=== PATIENT | male | born 1965 | race Caucasian/White ===

== ENCOUNTER 2016-11-09 14:03 | Observation (INO) | payer OTHER ==
[2016-11-09] VITALS (8 sets, daily range): BP systolic 124–161; BP diastolic 79–93; PULSE 65–80; RESP 16–18; TEMP 97.7–98.6; O2SAT 95–99
[~2016-11-09] VITALS: Ht 180.3 cm; Wt 94.6 kg
[~2016-11-09 14:03] MED LIST: ATOR40TA49 PO; CARV3.125 PO; ECOT81TA2 PO; ISOS30 PO; LEVEMIR SC; LISI5 PO; NOVOLOGSS SQ; PRAS10 PO
[2016-11-09 14:14] LABS: MEAN CORPUSCULAR HGB CONC 36.6 % (32.0-36.0)
[2016-11-09] MEDS ORDERED: ASPIRIN 81 MG CHEW TAB PO ONE (14:15)
[2016-11-09] MEDS ORDERED: SODIUM CHLORIDE 0.9% FLUSH 5 ML FLUSH IVF PRN (14:15)
[2016-11-09] MEDS ORDERED: ASPI81CH CHEW (14:20)
[2016-11-09] MEDS ORDERED: LISI-519 PO (14:20)
[2016-11-09] MEDS ORDERED: NITR0.4S SL (14:22)
[2016-11-09] MEDS ORDERED: INSU1INJ5 SQ (14:22)
[2016-11-09] MEDS ORDERED: LYRI100C PO (14:22)
[2016-11-09] MEDS ORDERED: NOVOINJ3 SQ (14:22)
[2016-11-09] MEDS ORDERED: PRAS10TA PO (14:25)
[2016-11-09] MEDS ORDERED: repatha SQ (14:25)
[2016-11-09 14:46] LABS: AUTOMATED NEUTROPHIL # 5.5 TH/MM3 (1.8-7.7); BASOPHIL # 0.1 TH/MM3 (0-0.2); BASOPHIL % 0.8 % (0.0-2.0); EOSINOPHIL # 0.2 TH/MM3 (0-0.4); HEMATOCRIT 43.6 % (39.0-51.0); LYMPH % 21.8 % (9.0-44.0); LYMPHOCYTE # 1.8 TH/MM3 (1.0-4.8); MEAN CELL VOLUME 87.6 FL (80.0-100.0); NEUT % 68.4 % (16.0-70.0); PLATELET COUNT 116 TH/MM3 (150-450); RED BLOOD COUNT 4.98 MIL/MM3 (4.50-5.90); RED CELL DISTRIBUTION WIDTH 14.3 % (11.6-17.2); WHITE BLOOD COUNT 8.1 TH/MM3 (4.0-11.0)
[2016-11-09 14:51] LABS: HEMO FLAGS AUTO DIFF
[2016-11-09 14:57] LABS: APTT (PATIENT) 32.4 SEC (24.3-30.1); PROTHROMBIN TIME - PATIENT 10.6 SEC (9.8-11.6)
--- NOTE | 2016-11-09 15:12 | RADRPT ---
EXAM DATE/TIME: 11/09/2016 14:20 [place] COMPARISON: CHEST SINGLE AP, November 04, 2015, 20:37. INDICATIONS : Chest pressure. MEDICAL HISTORY : [employer]ow[employer]. SURGICAL HISTORY : coronary artery stents x2 ENCOUNTER: Initial ACUITY: 1 day PAIN SCORE: 6/10 LOCATION: Left chest shoulder and neck FINDINGS: The cardiac silhouette is enlarged in transverse diameter. The lungs are free of acute parenchymal op acity. No effusions are identified. Osseous structures are intact. CONCLUSION: Cardiomegaly. No acute cardiopulmonary disease. Maximino Pandya MD on November 09, 2016 at 15:10 Board Certified Radiologist. This report was verified electronically.
[2016-11-09 15:16] LABS: ANION GAP 10 MEQ/L (5-15); BICARBONATE 26.1 MEQ/L (21.0-32.0); BLOOD UREA NITROGEN 13 MG/DL (7-18); CHLORIDE 97 MEQ/L (98-107); CREATINE KINASE 128 U/L (39-308); GLOMERULAR FILTRATION RATE 65 ML/MIN (>89); SODIUM (NA) 133 MEQ/L (136-145)
[2016-11-09 15:18] LABS: POTASSIUM 4.4 MEQ/L (3.5-5.1)
[2016-11-09] MEDS ORDERED: EVOL1.7I SQ (15:28)
--- NOTE | 2016-11-09 15:28 | PD ---
HPI Chief Complaint: Chest Pain Time Seen by Provider: 14:13 Travel History International Travel<30 days: No Contact w/Intl Traveler<30days: No Traveled to known affect area: No History of Present Illness HPI 51-year-old male came to the emergency room sent from his doctor's office with history of on and off chest pain for couple weeks. He had his lipid profile done which had significantly abnormal levels. He brought those results with him. Also his sugar and hemoglobin A1c are running very high. Currently patient has a chest pain off 5 out of 10. It's on the left side of his chest and it's a pressure sensation. No radiation of the pain. Patient has history of stents put in in the past. Vital signs were stable in triage. [facility] Past Medical History Narrative Medical List of his past medical, surgical, social and family history as reviewed from the nursing note. Asthma: No Autoimmune Disease: No Blood Disorders: Yes (THROMBOCYTOPENIA ) Anxiety: Yes Depression: Yes Heart Rhythm Problems: No Cancer: No Cardiac Catheterization: Yes (03/2014) Cardiovascular Problems: Yes High Cholesterol: Yes Chemotherapy: No Chest Pain: Yes Congestive Heart Failure: No COPD: No Diabetes: Yes Diminished Hearing: No Endocrine: Yes Gastrointestinal Disorders: Yes Gout: Yes Genitourinary: No Hypertension: No Immune Disorder: No Implanted Vascular Access Dvce: No Musculoskeletal: No Neurologic: No Psychiatric: Yes Reproductive: Yes (ERECTILE DYSFUNCTION) Respiratory: No Immunizations Current: Yes Radiation Therapy: No Sickle Cell Disease: No Sleep Apnea: No Thyroid Disease: No Triglycerides - High: Yes Past Surgical History Abdominal Surgery: No AICD: No Arteriovenous Shunt: No Body Medical Devices: CARDIAC STENT Cardiac Surgery: Yes Ear Surgery: No Endocrine Surgery: Yes (TONSILECTOMY) Eye Surgery: No Genitourinary Surgery: No Gynecologic Surgery: No Insulin Pump: No Joint Replacement: No Neurologic Surgery: No Oral Surgery: No Pacemaker: No Thoracic Surgery: No Tonsillectomy: Yes (1998) Other Surgery: Yes (TONSILS) Social History Alcohol Use: No Tobacco Use: No Substance Use: No Allergies-Medications (Allergen,Severity, Reaction): Coded Allergies: No Known Allergies (Unverified , 11/09/16) Comments No known drug allergies. Reported Meds & Prescriptions Reported Meds & Active Scripts Active Reported Repatha PF Inj (Evolocumab PF Inj) 140 Mg/Ml Syr 140 Mg SQ BIWEEKLY Effient (Prasugrel) 10 Mg Tab 10 Mg PO DAILY Levemir Flextouch Pen Inj (Insulin Detemir) 300 unit/3 ML Pen 120 Units SQ BID Novolog Flexpen Inj (Insulin Aspart) 300 Unit/3 Ml Pen 1 Units SQ Nitrostat SL (Nitroglycerin) 0.4 Mg Subl 0.4 Mg SL DIRECTED PRN 1 tablet under the tongue as needed for chest pain. Repeat every 5 minutes for a total of 3 DOSES or call 911 if NO relief. Lyrica (Pregabalin) 100 Mg Cap 100 Mg PO TID Lisinopril 5 Mg Tab 5 Mg PO DAILY Aspirin 81 Mg Chew 81 Mg CHEW DAILY Narrative Medication List of his home medications reviewed from the nursing note. Review of Systems Except as stated in HPI: all other systems reviewed are Neg Physical Exam Narrative GENERAL: Awake, alert, no obvious distress SKIN: Warm and dry. HEAD: Atraumatic. Normocephalic. EYES: Pupils equal and round. No scleral icterus. No injection or drainage. ENT: No nasal bleeding or discharge. Mucous membranes pink and moist. NECK: Trachea midline. No JVD. CARDIOVASCULAR: Regular rate and rhythm. No murmur appreciated. RESPIRATORY: No accessory muscle use. Clear to auscultation. Breath sounds equal bilaterally. GASTROINTESTINAL: Abdomen soft, non-tender, nondistended. Hepatic and splenic margins not palpable. MUSCULOSKELETAL: No obvious deformities. No clubbing. No cyanosis. No edema. NEUROLOGICAL: Awake and alert. No obvious cranial nerve deficits. Motor grossly within normal limits. Normal speech. PSYCHIATRIC: Appropriate mood and affect; insight and judgment normal. Data Data Last Documented VS Orders Electrocardiogram (11/09/16 14:13) Basic Metabolic Panel (Bmp) (11/09/16 14:13) Ckmb (Isoenzyme) Profile (11/09/16 14:13) Complete Blood Count With Diff (11/09/16 14:13) Magnesium (Mg) (11/09/16 14:13) Prothrombin Time / Inr (Pt) (11/09/16 14:13) Act Partial Throm Time (Ptt) (11/09/16 14:13) Troponin I (11/09/16 14:13) Chest, Single Ap (11/09/16 14:13) Ecg Monitoring (11/09/16 14:13) Bilateral Bp Monitoring (11/09/16 14:13) Iv Access Insert/Monitor (11/09/16 14:13) Oximetry (11/09/16 14:13) Oxygen Administration (11/09/16 14:13) Aspirin Chew (Aspirin Chew) (11/09/16 14:15) Sodium Chloride 0.9% Flush (Ns Flush) (11/09/16 14:15) CKMB (11/09/16 14:25) CKMB% (11/09/16 14:25) Insulin Human Regular Inj (Novolin R Inj (11/09/16 15:30) Sodium Chlorid 0.9% 500 Ml Inj (Ns 500 M (11/09/16 15:30) Admit Order (Ed Use Only) (11/09/16 16:08) Labs MDM Medical Decision Making Medical Screen Exam Complete: Yes Emergency Medical Condition: Yes Medical Record Reviewed: Yes Interpretation(s) Twelve-lead EKG was reviewed by me. Normal sinus rhythm, normal axis, nonspecific ST-T wave changes. Heart rate of 84 bpm. Differential Diagnosis ACS, unstable angina, non-STEMI Narrative Course 3:53 PM patient's blood sugar level was 407. I've ordered 10 units of regular insulin subcutaneous. Troponin was negative. Chest x-rays within normal limits. Awaiting for the hospitalist to call back for admission. Procedures EKG Prior to Arrival: No Diagnosis Primary Impression: Chest pain Qualified Code: R07.9 - Chest pain, unspecified type Additional Impression: hyperglycemia Admitting Information Admitting Physician Requests: Observation Winston Rodney MD Nov 09, 2016 15:28 Red Cell Distribution Width 14.3 % Platelet Count 116 TH/MM3 Mean Platelet Volume 8.2 FL Neutrophils (%) (Auto) 68.4 % Lymphocytes (%) (Auto) 21.8 % Monocytes (%) (Auto) 6.0 % Eosinophils (%) (Auto) 3.0 % Basophils (%) (Auto) 0.8 % Neutrophils # (Auto) 5.5 TH/MM3 Lymphocytes # (Auto) 1.8 TH/MM3 Monocytes # (Auto) 0.5 TH/MM3 Eosinophils # (Auto) 0.2 TH/MM3 Basophils # (Auto) 0.1 TH/MM3 CBC Comment AUTO DIFF Differential Comment AUTO DIFF CONFIRMED Prothrombin Time 10.6 SEC Prothromb Time International 1.0 RATIO Ratio Activated Partial 32.4 SEC Thromboplast Time Sodium Level 133 MEQ/L Potassium Level 4.4 MEQ/L Chloride Level 97 MEQ/L Carbon Dioxide Level 26.1 MEQ/L Anion Gap 10 MEQ/L Blood Urea Nitrogen 13 MG/DL Creatinine 1.18 MG/DL Estimat Glomerular Filtration 65 ML/MIN Rate Random Glucose 407 MG/DL Calcium Level 8.9 MG/DL Magnesium Level 2.0 MG/DL Total Creatine Kinase 128 U/L Creatine Kinase MB 3.5 NG/ML Troponin I LESS THAN 0.02 NG/ML MDM Medical Decision Making Medical Screen Exam Complete: Yes Emergency Medical Condition: Yes Medical Record Reviewed: Yes Interpretation(s) Twelve-lead EKG was reviewed by me. Normal sinus rhythm, normal axis, nonspecific ST-T wave changes. Heart rate of 84 bpm. Differential Diagnosis ACS, unstable angina, non-STEMI Narrative Course 3:53 PM patient's blood sugar level was 407. I've ordered 10 units of regular insulin subcutaneous. Troponin was negative. Chest x-rays within normal limits. Awaiting for the hospitalist to call back for admission. Procedures EKG Prior to Arrival: No Diagnosis Primary Impression: Chest pain Qualified Code: R07.9 - Chest pain, unspecified type Additional Impression: hyperglycemia Winston Rodney MD Nov 09, 2016 15:28
[2016-11-09] MEDS ORDERED: SODIUM CHLORID 0.9% 500 ML INJ 500 ML IV ONE (15:30)
[2016-11-09] MEDS ORDERED: INSULIN HUMAN REGULAR 1,000 UNITS/10 ML VIAL SQ ONE (15:30)
[2016-11-09 15:45] LABS: CKMB 3.5 NG/ML (0.5-3.6)
[2016-11-09 15:47] LABS: SCAN/DIFF AUTO DIFF CONFIRMED
[2016-11-09] MEDS ORDERED: SODIUM CHLORIDE 0.9% FLUSH 5 ML FLUSH FLUSH PRN (16:15)
[2016-11-09] MEDS ORDERED: NITROGLYCERIN 0.4 MG SL 25 TABS/BTL SL PRN (16:15)
[2016-11-09] MEDS ORDERED: MAGNESIUM HYDROXIDE SUSP 30 ML CUP PO PRN (16:15)
[2016-11-09] MEDS ORDERED: ONDANSETRON HCL 4 MG/2 ML VIAL IVP PRN (16:15)
[2016-11-09] MEDS ORDERED: BISACODYL 10 MG SUPP PR PRN (16:15)
[2016-11-09] MEDS ORDERED: SENNOSIDES 8.6 MG TAB PO PRN (16:15)
[2016-11-09] MEDS ORDERED: NALOXONE HCL 0.4 MG/ML AMP IV PRN (16:15)
[2016-11-09] MEDS ORDERED: GLUCAGON 1 MG/ML VIAL OTHER PRN (16:30)
[2016-11-09] MEDS ORDERED: DEXTROSE 50% IN WATER 50 ML VIAL(D50) IV PUSH PRN (16:30)
--- NOTE | 2016-11-09 18:08 | HHI.HP ---
HPI Service [facility] Primary Care Physician Calderon Aguirre MD Admission Diagnosis chest pain, rule out ACS, hyperglycemia Diagnoses: Chief Complaint: chest pain Travel History International Travel<30 Days: No Contact w/Intl Traveler <30 Da: No Traveled to Known Affected Are: No History of Present Illness This a pleasant 51-year-old male with significant past medical history of coronary artery disease and previous stent per Dr. taylor June 2015, PAD, type 1 diabetes with hyperosmolar syndrome, hypertriglyceridemia, hypertension, peripheral neuropathy. Patient presented to the emergency room with complaint of intermittent chest pain for the last couple weeks as well as abnormal lab work. Hewent to see his primary care physician had laboratory workup done and was told to come to the emergency room. Triglycerides were noted elevated at 1475. Hemoglobin A1c was reported as 11.4. Patient endorses that he was not able to tolerate lipid-lowering agent secondary to myalgias. He was recently prescribed Repatha but it has not arrived yet. Additionally he endorsed to his PCP that he's noted chest pressure, cramping and tightness over left chest wall. Sometimes he has stiffness of the left arm and neck associated with some nausea and night sweats. These episodes last approximately 1 hour. Denies any shortness of breath with CP episodes however he's noted some dyspnea with going up the stairs. He last saw Dr. Taylor July 2016 for a follow-up. He has been compliant with medications other than his statins. Patient was evaluated in the emergency room, first set of troponin was negative. He was noted with uncontrolled blood glucose, 407. States he is a "brittle diabetic" and is on very large doses of Levemir. Chest x-ray completed shows cardiomegaly, no acute cardiopulmonary disease. At this time he has some minor left-sided chest tightness, no shortness of breath. He is somewhat anxious and didn't really want to come to the hospital however he felt that the symptoms were ongoing and he was concerned that this could be another cardiac event. Pt. is admitted for further evaluation and treatment. Review of Systems Constitutional: COMPLAINS OF: Night Sweats, DENIES: Diaphoretic episodes, Fatigue, Fever, Weight gain, Weight loss, Chills, Dizziness, Change in appetite Endocrine: DENIES: Heat/cold intolerance, Polydipsia, Polyuria, Polyphagia Eyes: DENIES: Blurred vision, Diplopia, Eye inflammation, Eye pain, Vision loss , Photosensitivity, Double Vision Ears, nose, mouth, throat: DENIES: Tinnitus, Hearing loss, Vertigo, Nasal discharge, Oral lesions, Throat pain, Hoarseness, Ear Pain, Running Nose, Epistaxis, Sinus Pain, Toothache, Odynophagia Respiratory: DENIES: Apneas, Cough, Snoring, Wheezing, Hemoptysis, Sputum production, Shortness of breath Cardiovascular: COMPLAINS OF: Chest pain, Dyspnea on Exertion, DENIES: Palpitations, Syncope, PND, Lower Extremity Edema, Orthopnea, Claudication Gastrointestinal: DENIES: Abdominal pain, Black stools, Bloody stools, Constipation, Diarrhea, Nausea, Vomiting, Difficulty Swallowing, Anorexia Genitourinary: DENIES: Sexual dysfunction, Urinary frequency, Urinary incontinence, Urgency, Hematuria, Dysuria, Nocturia, Penile Discharge, Testicular Pain, Testicular Swelling Musculoskeletal: DENIES: Joint pain, Muscle aches, Stiffness, Joint Swelling, Back pain, Neck pain Integumentary: DENIES: Abnormal pigmentation, Nail changes, Pruritus, Rash Hematologic/lymphatic: DENIES: Bruising, Lymphadenopathy Immunologic/allergic: DENIES: Eczema, Urticaria Neurologic: DENIES: Abnormal gait, Headache, Localized weakness, Paresthesias, Seizures, Speech Problems, Tremor, Poor Balance Psychiatric: COMPLAINS OF: Anxiety, DENIES: Confusion, Mood changes, Depression, Hallucinations, Agitation, Suicidal Ideation, Homicidal Ideation, Delusions Other neuropathy feet Past Family Social History Past Medical History 1. Diabetes, type 1 on insulin. 2. Hypertension. 3. Hyperlipidemia. 4. Coronary artery disease. 5. Peripheral neuropathy. 6. History of erectile dysfunction. 7. Prior history of alcohol abuse. 8. Hyperosmolar syndrome 9. PAD Past Surgical History Significant for multiple cardiac catheterizations and stenting, last one in June 2015, endovascular stenting with drug-eluting stent, proximal stent in early mid left anterior descending coronary artery. Last cardiac catheter 2015, stents open, continued on medical management Reported Medications Reported Meds & Active Scripts Active Reported Repatha PF Inj (Evolocumab PF Inj) 140 Mg/Ml Syr 140 Mg SQ BIWEEKLY Effient (Prasugrel) 10 Mg Tab 10 Mg PO DAILY Levemir Flextouch Pen Inj (Insulin Detemir) 300 unit/3 ML Pen 120 Units SQ BID Novolog Flexpen Inj (Insulin Aspart) 300 Unit/3 Ml Pen 1 Units SQ Nitrostat SL (Nitroglycerin) 0.4 Mg Subl 0.4 Mg SL DIRECTED PRN 1 tablet under the tongue as needed for chest pain. Repeat every 5 minutes for a total of 3 DOSES or call 911 if NO relief. Lyrica (Pregabalin) 100 Mg Cap 100 Mg PO TID Lisinopril 5 Mg Tab 5 Mg PO DAILY Aspirin 81 Mg Chew 81 Mg CHEW DAILY Allergies: Coded Allergies: No Known Allergies (Unverified , 11/09/16) Active Ordered Medications Inpatient Medications Aspirin (Aspirin Chew) 81 mg DAILY CHEW ; Start 11/10/16 at 09:00 Bisacodyl (Dulcolax Supp) 10 mg DAILY PRN GA CONSTIPATION; Start 11/09/16 at 16: 15 Dextrose (D50w (Vial) Inj) 25 ml UNSCH PRN IV PUSH HYPOGLYCEMIA-SEE COMMENTS; Start 11/09/16 at 16:30 Glucagon (Glucagon Inj) 1 mg UNSCH PRN OTHER HYPOGLYCEMIA-SEE COMMENTS; Start 11/09/16 at 16:30 Heparin Sodium (Porcine) (Heparin Inj) 5,000 units Q8H SQ ; Start 11/09/16 at 16: 15 Insulin Aspart (NovoLOG SUPPLEMENTAL SCALE) 1 ACHS SLIDING SCALE SQ ; Start 11/09/16 at 21:00 Insulin Detemir (Levemir Inj) 10 units DAILY SQ ; Start 11/09/16 at 16:30 Insulin Human Regular 10 units 10 units ONCE ONCE SQ Last administered on t 15:37; Start 11/09/16 at 15:30; Stop 11/09/16 at 15:31; Status DC IV Flush (NS Flush) 2 ml BID FLUSH ; Start 11/09/16 at 21:00 Lisinopril (Prinivil) 5 mg DAILY PO ; Start 11/10/16 at 09:00 Magnesium Hydroxide (Milk Of Magnesia Liq) 30 ml Q12H PRN PO CONSTIPATION; Start 11/09/16 at 16:15 Naloxone HCl (Narcan Inj) 0.4 mg UNSCH PRN IV SEE LABEL COMMENTS; Start at 16:15 Nitroglycerin (Nitrostat Sl) 0.4 mg 5 TIMES A DAY PRN SL CHEST PAIN; Start 11/09 at 16:15 Ondansetron HCl (Zofran Inj) 4 mg Q6H PRN IVP NAUSEA OR VOMITING; Start at 16:15 Prasugrel (Effient) 10 mg DAILY PO ; Start 11/09/16 at 16:15 Pregabalin (Lyrica) 100 mg TID PO ; Start 11/09/16 at 18:00 Sennosides (Senokot) 17.2 mg Q12H PRN PO CONSTIPATION; Start 11/09/16 at 16:15 Sodium Chloride (NS 500 ml Inj) 500 ml @ 500 mls/hr BOLUS ONCE IV Last administered on 11/09/16t 15:41; Start 11/09/16 at 15:30; Stop 11/09/16 at 16:29; Status DC Family History His dad is [id number]. He suffers from diabetes and has heart disease with bypass grafting. His mother is alive but she does not follow-up with doctors. He does not know her health problems. His grandmother, however, was diabetic also. Social History The patient denies smoking. 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 He denies any drug abuse. He is and lives with his . 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 Physical Exam Vital Signs Vital Signs Date Time Temp Pulse Resp B/P Pulse Ox O2 Delivery O2 Flow Rate FiO2 11/09/16 15:43 69 18 152/89 99 Room Air 11/09/16 14:17 149/93 140/87 11/09/16 14:14 77 16 161/93 98 11/09/16 14:04 98.6 80 18 140/87 98 Room Air Physical Exam GENERAL: This is a well-nourished, well-developed patient, in no apparent distress. SKIN: No rashes, ecchymoses or lesions. Cool and dry. HEAD: Atraumatic. Normocephalic. No temporal or scalp tenderness. EYES: Pupils equal round and reactive. Extraocular motions intact. No scleral icterus. No injection or drainage. ENT: Nose without bleeding, purulent drainage or septal hematoma. Throat without erythema, tonsillar hypertrophy or exudate. Uvula midline. Airway patent. NECK: Trachea midline. No JVD or lymphadenopathy. Supple, nontender, no meningeal signs. CARDIOVASCULAR: Regular rate and rhythm without murmurs, gallops, or rubs. RESPIRATORY: Faint bibasilar rales. GASTROINTESTINAL: Abdomen soft, non-tender, nondistended. No hepato-splenomegaly , or palpable masses. No guarding. MUSCULOSKELETAL: Extremities without clubbing, cyanosis. Bilat pedal pulses 1+, trace edema. No joint tenderness, effusion, or edema noted. No calf tenderness. Negative Homans sign bilaterally. NEUROLOGICAL: Awake and alert. Cranial nerves II through XII intact. Motor and sensory grossly within normal limits. Five out of 5 muscle strength in all muscle groups. Normal speech. Laboratory Laboratory Tests Test 11/09/16 14:25 White Blood Count 8.1 Red Blood Count 4.98 Hemoglobin 15.9 Hematocrit 43.6 Mean Corpuscular Volume 87.6 Mean Corpuscular Hemoglobin 32.0 Mean Corpuscular Hemoglobin 36.6 Concent Red Cell Distribution Width 14.3 Platelet Count 116 Mean Platelet Volume 8.2 Neutrophils (%) (Auto) 68.4 Lymphocytes (%) (Auto) 21.8 Monocytes (%) (Auto) 6.0 Eosinophils (%) (Auto) 3.0 Basophils (%) (Auto) 0.8 Neutrophils # (Auto) 5.5 Lymphocytes # (Auto) 1.8 Monocytes # (Auto) 0.5 Eosinophils # (Auto) 0.2 Basophils # (Auto) 0.1 CBC Comment AUTO DIFF Differential Comment AUTO DIFF CONFIRMED Prothrombin Time 10.6 Prothromb Time International 1.0 Ratio Activated Partial 32.4 Thromboplast Time Sodium Level 133 Potassium Level 4.4 Chloride Level 97 Carbon Dioxide Level 26.1 Anion Gap 10 Blood Urea Nitrogen 13 Creatinine 1.18 Estimat Glomerular Filtration 65 Rate Random Glucose 407 Calcium Level 8.9 Magnesium Level 2.0 Total Creatine Kinase 128 Creatine Kinase MB 3.5 Troponin I LESS THAN 0.02 Result Diagram: 11/09/16 1425 11/09/16 1425 Imaging Last Impressions Chest X-Ray 11/09/16 1413 Signed Impressions: Service Date/Time: Wednesday, November 09, 2016 14:20 - CONCLUSION: Cardiomegaly. No acute cardiopulmonary disease. Maximino Pandya MD Assessment and Plan Problem List: (1) Chest pain (2) Peripheral arterial disease (3) Peripheral neuropathy (4) Hyperlipidemia (5) Coronary artery disease (6) Diabetes mellitus, insulin dependent (IDDM), uncontrolled (7) Hypertriglyceridemia (8) Cardiomegaly Assessment and Plan Admit to Dr. Love 51-year-old male with significant past medical history of coronary artery disease and stents, hypertension, diabetes. Presented to the emergency room with intermittent chest discomfort associated with mild nausea and dyspnea with exertion. First set of troponin negative, rule out acute coronary syndrome -Continue with serial cardiac enzymes -Consult Dr. Taylor for further evaluation -Nitroglycerin half an inch every 6 -Continue with Effient and baby ASA -Will add Coreg 3.125 mg PO BID -We'll keep patient nothing by mouth after midnight Type 1 diabetes, uncontrolled blood glucose Accu-Cheks before meals and at bedtime with insulin therapy-high dose Continue with Levemir -Diabetic diet Cardiomegaly noted per X-ray We will check 2-D echo Hypertension, stable Continue with home medications Hyperlipidemia, hypertriglyceridemia-has not been able to tolerate statins due to myalgias -had recent lipid profile no need to repeat, will use Repatha upon discharge Peripheral neuropathy -Continue home meds Plan of care has been discussed with the patient, attending and registered nurse. Further management of the patient will be dependent on the hospital course This patient was seen by myself and Dr. Love, this H/P is written on his behalf Physician Certification 2 Midnight Certification Type: Admission for Inpatient Services Order for Inpatient Services The services are ordered in accordance with Medicare regulations or non- Medicare payer requirements, as applicable. In the case of services not specified as inpatient-only, they are appropriately provided as inpatient services in accordance with the 2-midnight benchmark. Estimated LOS (days): 2 days is the estimated time the patient will need to remain in the hospital, assuming treatment plan goals are met and no additional complications. Post-Hospital Plan: Home Problem Qualifiers (1) Chest pain: Qualified Code: R07.9 - Chest pain, unspecified type (2) Peripheral neuropathy: Qualified Code: G62.9 - Peripheral polyneuropathy (3) Hyperlipidemia: Qualified Code: E78.5 - Hyperlipidemia, unspecified hyperlipidemia type (4) Coronary artery disease: Qualified Code: I25.118 - Coronary artery disease of [place] artery of [place] heart with stable angina pectoris (5) Diabetes mellitus, insulin dependent (IDDM), uncontrolled: Qualified Code: E10.59 - Uncontrolled type 1 diabetes mellitus with other circulatory complication Aleisha Lorenzo Nov 09, 2016 18:08
[2016-11-09] MEDS: HEPARIN SODIUM - SQ 10,000 UNITS/ML VIAL SQ SCH ×2 (19:07→23:41)
[2016-11-09] MEDS: PREGABALIN 100 MG CAP PO SCH (19:07)
[2016-11-09] MEDS: NITROGLYCERIN 2% OINT 1 GM PACKET TOPICAL SCH ×2 (19:07→23:42)
[2016-11-09] MEDS: INSULIN DETEMIR 100 UNITS/ML VIAL SQ SCH ×2 (19:10→21:00)
[2016-11-09] MEDS: PRASUGREL 10 MG TAB PO SCH (19:47)
[2016-11-09] MEDS: INSULIN ASPART SUPPLEMENTAL SCALE SQ SCH (20:45)
[2016-11-09] MEDS: SODIUM CHLORIDE 0.9% FLUSH 5 ML FLUSH FLUSH SCH (21:00)
[2016-11-09 22:08] LABS: CREATINE KINASE 87 U/L (39-308)
[2016-11-09] MEDS: CARVEDILOL 3.125 MG TAB PO SCH (22:47)
[2016-11-09] MEDS ORDERED: TEMAZEPAM 15 MG CAP PO PRN (23:30)
[2016-11-10 03:35] LABS: AUTOMATED NEUTROPHIL # 3.6 TH/MM3 (1.8-7.7); BASOPHIL # 0.1 TH/MM3 (0-0.2); BASOPHIL % 1.2 % (0.0-2.0); EOSINOPHIL # 0.3 TH/MM3 (0-0.4); EOSINOPHIL % 4.1 % (0.0-4.0); HEMATOCRIT 38.2 % (39.0-51.0); HEMO FLAGS DIFF FINAL; LYMPH % 34.2 % (9.0-44.0); LYMPHOCYTE # 2.3 TH/MM3 (1.0-4.8); MEAN CELL VOLUME 86.1 FL (80.0-100.0); MEAN CORPUSCULAR HEMOGLOBIN 30.9 PG (27.0-34.0); MEAN CORPUSCULAR HGB CONC 35.9 % (32.0-36.0); NEUT % 53.5 % (16.0-70.0); PLATELET COUNT 101 TH/MM3 (150-450); RED BLOOD COUNT 4.43 MIL/MM3 (4.50-5.90); RED CELL DISTRIBUTION WIDTH 14.3 % (11.6-17.2); WHITE BLOOD COUNT 6.7 TH/MM3 (4.0-11.0)
[2016-11-10 04:01] LABS: BICARBONATE 27.3 MEQ/L (21.0-32.0); POTASSIUM 3.7 MEQ/L (3.5-5.1)
[2016-11-10 04:06] LABS: CREATINE KINASE 63 U/L (39-308)
[2016-11-10 04:12] VITALS: BP 102/62; PULSE 69; RESP 16; TEMP 97.1; O2SAT 93
[2016-11-10] MEDS: INSULIN ASPART SUPPLEMENTAL SCALE SQ SCH ×2 (05:12→11:00)
[2016-11-10] MEDS: NITROGLYCERIN 2% OINT 1 GM PACKET TOPICAL SCH (05:13)
--- NOTE | 2016-11-10 07:42 | PD.CONS ---
HPI Service CV Consult Requested By Reason for Consult chest pain Primary Care Physician Calderon Aguirre MD History of Present Illness Here with CAD s/p PCI LAD 2013 and PCI FARHEEN LAD in stent stenosis 2014, PAD, HTN , hyperlipidemia and type 2 diabetes out of control. Here for 2 weeks of intermittent left anterior chest pain that radiates to his left upper extremity. This occurs with exertion. It last 5 to 10 minutes. There are no associated symptoms. He states recent lab work showed triglycerides 1400 and A1C 11.5%. He stopped taking statin secondary to myalgia Review of Systems Consitutional: DENIES: Fatigue, Fever, Chills, Weight gain, Weight loss Eyes: DENIES: Amaurosis Fugax, Change in vision HEENT: DENIES: Lightheadedness, Change in hearing Respiratory: DENIES: See HPI, Cough, Snoring, Shortness of breath, Wheezing, Sputum production Cardiovascular: COMPLAINS OF: See HPI Gastrointestinal: DENIES: Nausea, Vomiting, Change in bowel habits, Reflux, Bloody stools, Melena Genitourinary: DENIES: Urinary incontinence, Difficulty voiding Integumentary: DENIES: Rash Neurologic: DENIES: Tingling or numbness, Memory problems, Poor Balance, Stroke symptoms Musculoskeletal: DENIES: Joint pain, Muscle pain, Limited range of motion, Back pain Psychiatric: DENIES: Anxiety, Depression, Sleep disturbances Hematologic: DENIES: Bruising tendencies, Bleeding tendencies Endocrine: DENIES: Weight gain, Weight loss, Thyroid disease Past Family Social History Allergies: Coded Allergies: No Known Allergies (Unverified , 11/09/16) Past Medical History Diabetes, type 1 on insulin. Hypertension. Hyperlipidemia. Coronary artery disease. Peripheral neuropathy. History of erectile dysfunction. Prior history of alcohol abuse. Hyperosmolar syndrome PAD Past Surgical History see HPI Reported Medications Reported Meds & Active Scripts Active Reported Repatha PF Inj (Evolocumab PF Inj) 140 Mg/Ml Syr 140 Mg SQ BIWEEKLY Effient (Prasugrel) 10 Mg Tab 10 Mg PO DAILY Levemir Flextouch Pen Inj (Insulin Detemir) 300 unit/3 ML Pen 120 Units SQ BID Novolog Flexpen Inj (Insulin Aspart) 300 Unit/3 Ml Pen 1 Units SQ Nitrostat SL (Nitroglycerin) 0.4 Mg Subl 0.4 Mg SL DIRECTED PRN 1 tablet under the tongue as needed for chest pain. Repeat every 5 minutes for a total of 3 DOSES or call 911 if NO relief. Lyrica (Pregabalin) 100 Mg Cap 100 Mg PO TID Lisinopril 5 Mg Tab 5 Mg PO DAILY Aspirin 81 Mg Chew 81 Mg CHEW DAILY Active Ordered Medications Current Medications Medications (Trade) Dose Ordered Sig/Keli Route Start Time Stop Time Status Last Admin (NS Flush) 2 ml UNSCH PRN IVF 11/09/16 14:15 (Aspirin Chew) 81 mg DAILY CHEW 11/10/16 09:00 (Prinivil) 5 mg DAILY PO 11/10/16 09:00 (Effient) 10 mg DAILY PO 11/09/16 16:15 11/09/16 19:47 (Lyrica) 100 mg TID PO 11/09/16 18:00 11/09/16 19:07 (Levemir Inj) 120 units BID SQ 11/09/16 21:00 (NS Flush) 2 ml UNSCH PRN FLUSH 11/09/16 16:15 (NS Flush) 2 ml BID FLUSH 11/09/16 21:00 11/09/16 21:00 (Zofran Inj) 4 mg Q6H PRN IVP 11/09/16 16:15 (Dulcolax Supp) 10 mg DAILY PRN [place] 11/09/16 16:15 (Milk Of Magnjanie Liq) 30 ml Q12H PRN PO 11/09/16 16:15 (Senokot) 17.2 mg Q12H PRN PO 11/09/16 16:15 (Heparin Inj) 5,000 units Q8H SQ 11/09/16 16:15 11/09/16 23:41 (Narcan Inj) 0.4 mg UNSCH PRN IV 11/09/16 16:15 (Levemir Inj) 10 units DAILY SQ 11/09/16 16:30 11/09/16 19:10 (D50w (Vial) Inj) 25 ml UNSCH PRN IV PUSH 11/09/16 16:30 (Glucagon Inj) 1 mg UNSCH PRN OTHER 11/09/16 16:30 (Nitroglycerin 2% Oint) 0.5 inch Q6HR TOPICAL 11/09/16 18:00 11/10/16 05:13 (Coreg) 3.125 mg Q12HR PO 11/09/16 21:00 11/09/16 22:47 (Restoril) 15 mg HS PO 11/10/16 21:00 11/09/16 23:41 Family History noncontributory Social History denies smoking, alcohol or substance abuse Physical Exam Vital Signs Vital Signs Date Time Temp Pulse Resp B/P Pulse Ox O2 Delivery O2 Flow Rate FiO2 11/10/16 04:12 97.1 69 16 102/62 93 11/09/16 23:58 97.9 70 16 124/79 98 11/09/16 22:57 18 11/09/16 22:11 72 11/09/16 21:27 97.7 71 16 127/80 99 11/09/16 19:14 65 17 148/84 95 Room Air 11/09/16 15:43 69 18 152/89 99 Room Air 11/09/16 14:17 149/93 140/87 11/09/16 14:14 77 16 161/93 98 11/09/16 14:04 98.6 80 18 140/87 98 Room Air Physical Exam GENERAL: Well-nourished, well-developed patient in no apparent distress. NECK: No JVD. No carotid bruit. CARDIOVASCULAR: Regular rate and rhythm. S1/S2 no murmur, rub, or gallop. RESPIRATORY: No accessory muscle use. Clear to auscultation. Breath sounds equal bilaterally. GASTROINTESTINAL: Abdomen soft, non-tender, nondistended. MUSCULOSKELETAL: Extremities without clubbing, cyanosis, or edema. Laboratory Laboratory Tests Test 11/09/16 11/09/16 11/10/16 14:25 20:47 03:16 White Blood Count 8.1 6.7 Red Blood Count 4.98 4.43 Hemoglobin 15.9 13.7 Hematocrit 43.6 38.2 Mean Corpuscular Volume 87.6 86.1 Mean Corpuscular Hemoglobin 32.0 30.9 Mean Corpuscular Hemoglobin 36.6 35.9 Concent Red Cell Distribution Width 14.3 14.3 Platelet Count 116 101 Mean Platelet Volume 8.2 8.0 Neutrophils (%) (Auto) 68.4 53.5 Lymphocytes (%) (Auto) 21.8 34.2 Monocytes (%) (Auto) 6.0 7.0 Eosinophils (%) (Auto) 3.0 4.1 Basophils (%) (Auto) 0.8 1.2 Neutrophils # (Auto) 5.5 3.6 Lymphocytes # (Auto) 1.8 2.3 Monocytes # (Auto) 0.5 0.5 Eosinophils # (Auto) 0.2 0.3 Basophils # (Auto) 0.1 0.1 CBC Comment AUTO DIFF DIFF FINAL Differential Comment AUTO DIFF CONFIRMED Prothrombin Time 10.6 Prothromb Time International 1.0 Ratio Activated Partial 32.4 Thromboplast Time Sodium Level 133 137 Potassium Level 4.4 3.7 Chloride Level 97 102 Carbon Dioxide Level 26.1 27.3 Anion Gap 10 8 Blood Urea Nitrogen 13 12 Creatinine 1.18 0.89 Estimat Glomerular Filtration 65 90 Rate Random Glucose 407 263 Calcium Level 8.9 8.7 Magnesium Level 2.0 Total Creatine Kinase 128 87 63 Creatine Kinase MB 3.5 Troponin I LESS THAN 0.02 LESS THAN 0.02 LESS THAN 0.02 Result Diagram: 11/10/1631511/[id number]/16315 Assessment and Plan Problem List: (1) Coronary artery disease (2) Hypertension (3) Hyperlipidemia Assessment and Plan unstable angina - In the past SPECT has not been helpful it is for this reason we should proceed with coronary angiogram. HTN - well controlled hyperlipidemia - intolerant to statin therapy Problem Qualifiers (1) Coronary artery disease: Qualified Code: I25.118 - Coronary artery disease of [place] artery of [place] heart with stable angina pectoris (2) Hyperlipidemia: Qualified Code: E78.5 - Hyperlipidemia, unspecified hyperlipidemia type Raimundo Mercado Nov 10, 2016 07:42
[2016-11-10 08:02] VITALS: BP 110/60; PULSE 70; RESP 20; TEMP 97.3; O2SAT 95
[2016-11-10] MEDS: CARVEDILOL 3.125 MG TAB PO SCH (08:41)
[2016-11-10] MEDS: PRASUGREL 10 MG TAB PO SCH (08:41)
[2016-11-10] MEDS: SODIUM CHLORIDE 0.9% FLUSH 5 ML FLUSH FLUSH SCH (08:41)
[2016-11-10] MEDS: HEPARIN SODIUM - SQ 10,000 UNITS/ML VIAL SQ SCH (08:42)
[2016-11-10] MEDS: INSULIN DETEMIR 100 UNITS/ML VIAL SQ SCH ×2 (08:42)
[2016-11-10] MEDS ORDERED: LISINOPRIL 5 MG TAB PO SCH (09:00)
[2016-11-10] MEDS ORDERED: ASPIRIN 81 MG CHEW TAB CHEW SCH (09:00)
[2016-11-10] MEDS: PREGABALIN 100 MG CAP PO SCH (09:00)
--- NOTE | 2016-11-10 09:19 | MB ---
cc: SEAMUS TORO MD DATE OF CONSULTATION: 11/10/2016 HISTORY OF PRESENT ILLNESS This is a 51-year-old gentleman who has been to the hospital for diabetes control and chest discomfort. He has a history of coronary artery disease with PTCA and stenting in the past. His last catheterization was one year ago at which time he was found to have a patent stent with 50% lesion noted. He is a very brittle diabetic with poor control. He saw his doctor and underwent blood testing. His sugar was found to be out of control and he was suggested to come to the hospital. It is noted that over the past two weeks he has redeveloped anterior chest discomfort which is a tightness in the anterior chest on the left side with radiation to his left arm. This occurs with coughing as well as at rest. He does note some exertional discomfort as well but is not very active because of severe peripheral neuropathy. No diaphoresis or nausea has been present. He feels this is exactly the same sort of discomfort that he has had an the past when he has received his stents. He notes that he has had multiple stress tests in the past which have not been a value in detecting his coronary disease as they have been reported as normal with abnormal results at the catheterization table. PAST MEDICAL HISTORY Severe hyperlipidemia and hypertriglyceridemia. He has been on Lovaza in the past, although he has not been taking that and is intolerant of statins and has been recommended to start on Repatha which he is due to start tomorrow. Past medical history is otherwise unremarkable. SOCIAL HISTORY The patient does not smoke. He does not drink or use recreational drugs. MEDICATIONS His medications now include aspirin 81 mg daily, Effient 10 mg daily, Levemir insulin and lisinopril. FAMILY HISTORY Father has had premature coronary artery disease. ALLERGIES None. PHYSICAL EXAMINATION GENERAL: He awake and alert. VITAL SIGNS: Blood pressure 120/70, pulse 70 and regular. NECK: There is no neck vein distension. Carotids are normal. LUNGS: Clear. CARDIOVASCULAR: Exam reveals regular rate and rhythm. There is no murmur or gallop noted. ASSESSMENT AND PLAN The patient had recurrence of chest discomfort. Will plan a cardiac catheterization in view of his history of inaccurate stress testing in the past. MD RENNY Bateman/NASIR /7:48 AM /9:08 AM
[2016-11-10] MEDS ORDERED: HEPARIN-NS/PF INJ 500 ML ONE (11:14)
[2016-11-10] MEDS ORDERED: MIDAZOLAM HCL 2 MG/2 ML VIAL ONE ×4 (11:14→12:13)
[2016-11-10] MEDS ORDERED: HEPARIN SODIUM - IV 10,000 UNITS/10 ML VIAL ONE (11:23)
[2016-11-10] MEDS ORDERED: BIVALIRUDIN 250 MG VIAL ONE (11:52)
[2016-11-10] MEDS ORDERED: STERILE WATER FOR INJECTION 10 ML VIAL ONE (11:53)
[2016-11-10] MEDS ORDERED: IOHEXOL 350 MG/ML 100 ML BTL (for Cath Lab) OTHER ONE (12:00)
[2016-11-10] MEDS ORDERED: ADENOSINE STRESS TEST INJ 90 MG/30 ML VIAL ONE (12:03)
[2016-11-10] MEDS ORDERED: SODIUM CHLOR 0.9% 1000 ML INJ 1,000 ML IV SCH (12:25)
[2016-11-10] MEDS ORDERED: MISC INFORMATION XX ONE (12:30)
[2016-11-10] MEDS ORDERED: LIDOCAINE 2% JELLY 30 ML TUBE TOP PRN (12:30)
[2016-11-10] MEDS ORDERED: BACITRACIN OINT 0.9 GM PKT TOP ONE (12:30)
[2016-11-10] MEDS ORDERED: FENOFIBRATE 145 MG TAB PO SCH (12:45)
--- NOTE | 2016-11-10 13:29 | MA ---
cc: SHELL MARES DATE 11/10/2016 PROCEDURE PERFORMED 1. Fluoroscopy with interpretation 2. Coronary angiography 3. Left heart catheterization 4. Pressure derived fractional flow reserve measurement of left anterior descending coronary artery. 5. Percutaneous intervention with drug-eluting stent to the mid left anterior descending coronary artery. METHOD The risks, benefits and alternatives discussed with the patient. The patient understood and consented to the procedure. The patient brought into the catheterization lab, placed on the catheterization table. The right wrist was prepped and draped in a sterile fashion. The right wrist was anesthetized with 2% lidocaine. The right radial artery was cannulated and a 6-Czech 7-cm sheath was placed without difficulty. LEFT HEART CATHETERIZATION A 6-Czech JR-5 catheter was advanced across the aortic valve without difficulty. Intraventricular hemodynamics measured 101/10 mmHg. The left ventricular end diastolic pressure of 13 mmHg. No significant aortic stenosis by transaortic valve or pullback gradient. CORONARY ANGIOGRAPHY 1. Left main coronary is angiography normal. 2. Left anterior descending coronary artery has stents present through the entire proximal to mid segment which had minor luminal irregularities. At the distal stent margin, there appears to be either a myocardial bridge or kinking of the vessel. The stenosis severity is about 75%. Distally, there is a 90% stenosis but its at that the apex to the left ventricle smaller caliber size. 3. Left circumflex has minor luminal irregularities proximally. There is a large first obtuse marginal branch and sub-branch that is widely patent. A smaller second obtuse marginal branch which has a 40-50% proximal stenosis present. 4. The right coronary is a dominant vessel giving rise to a posterior descending coronary. The right coronary has 40% stenosis in the mid segment. The distal segment has 50% stenosis just prior to the bifurcation, but it is a smaller caliber sized vessel. PRESSURE DERIVED FRACTIONAL FLOW RESERVE MEASUREMENT LEFT ANTERIOR DESCENDING CORONARY ARTERY The left coronary circulation was selectively engaged with a 6-Czech AL-2 guide catheter. A 0.014 inch pressure wire was then prepped and calibrated. The wire was advanced to the distal catheter and normalized. Initial IFR measurement across the lesion was 0.86 which is at the lower end of the intermediate range which recommends further assessment with FFR. Adenosine 240 mcg/k per minute was then administered and a fractional flow reserve measurement of 0.79 was obtained which is hemodynamically significant. A 3.0 x 12 mm RX Resolute drug-eluting stent was advanced to the mid left anterior descending coronary and deployed. Repeat angiography showed no residual stenosis, JARROD-III flow. The wire was removed. HemoBand applied. CONCLUSION 1. Severe mid left anterior descending coronary stenosis confirmed to be hemodynamically significant by pressure derived fractional flow reserve measurement. 2. Normal left-sided filling pressures. 3. Successful percutaneous intervention with drug-eluting stent to the mid left anterior descending coronary artery. PLAN The patient will be monitored closely. There were no post procedural complications. He has already Effient and tolerating well. We will initiate Fibrate therapy for his elevated triglycerides and is also on Repatha injectables for his LDL hyperlipidemia. We will start a long-acting nitrate for his small-vessel disease. Anticipate possible discharge later today since his radial approach and he is doing very well. MD ALON Ivey/MIGEL /12:35 PM /1:21 PM EMMETT
--- NOTE | 2016-11-10 15:19 | HHI.PR ---
Subjective Interval History Alert, oriented, denies complaints Review of Systems Constitutional Constitutional Remarks 10 systems reviewed and otherwise negative Vitals/Results Intake & Output 11/09/16 11/09/16 11/10/16 15:00 23:00 07:00 Intake Total 442 ml Balance 442 ml Intake Oral 440 ml IV Total 2 ml # Voids 2 # Bowel Movements 0 Vital Signs Vital Signs Date Time Temp Pulse Resp B/P Pulse Ox O2 Delivery O2 Flow Rate FiO2 11/10/16 08:02 97.3 70 20 110/60 95 11/10/16 04:12 97.1 69 16 102/62 93 11/09/16 23:58 97.9 70 16 124/79 98 11/09/16 22:57 18 11/09/16 22:11 72 11/09/16 21:27 97.7 71 16 127/80 99 11/09/16 19:14 65 17 148/84 95 Room Air 11/09/16 15:43 69 18 152/89 99 Room Air CBC/BMP: 11/10/16 0316 11/10/16 0316 Lab Results Laboratory Tests Test 11/09/16 11/10/16 20:47 03:16 Total Creatine Kinase 87 U/L 63 U/L Troponin I LESS THAN 0.02 LESS THAN 0.02 NG/ML NG/ML White Blood Count 6.7 TH/MM3 Red Blood Count 4.43 MIL/MM3 Hemoglobin 13.7 GM/DL Hematocrit 38.2 % Mean Corpuscular Volume 86.1 FL Mean Corpuscular Hemoglobin 30.9 PG Mean Corpuscular Hemoglobin 35.9 % Concent Red Cell Distribution Width 14.3 % Platelet Count 101 TH/MM3 Mean Platelet Volume 8.0 FL Neutrophils (%) (Auto) 53.5 % Lymphocytes (%) (Auto) 34.2 % Monocytes (%) (Auto) 7.0 % Eosinophils (%) (Auto) 4.1 % Basophils (%) (Auto) 1.2 % Neutrophils # (Auto) 3.6 TH/MM3 Lymphocytes # (Auto) 2.3 TH/MM3 Monocytes # (Auto) 0.5 TH/MM3 Eosinophils # (Auto) 0.3 TH/MM3 Basophils # (Auto) 0.1 TH/MM3 CBC Comment DIFF FINAL Differential Comment Sodium Level 137 MEQ/L Potassium Level 3.7 MEQ/L Chloride Level 102 MEQ/L Carbon Dioxide Level 27.3 MEQ/L Anion Gap 8 MEQ/L Blood Urea Nitrogen 12 MG/DL Creatinine 0.89 MG/DL Estimat Glomerular Filtration 90 ML/MIN Rate Random Glucose 263 MG/DL Calcium Level 8.7 MG/DL Physical Exam General General Appearance: No Acute Distress, Obese Eyes Eye Exam: Pupils Reactive Ears & Nose Ears & Nose Exam: Nasal Mucosa [place] Throat Throat Exam: Oral Mucosa [place] & Moist Neck Neck Exam: Neck Supple Pulmonary Resp Exam: Clear Bilaterally ( ), Breath Sounds Equal Cardiology CV Exam: Normal Sinus Rhythm Gastrointestinal/Abdomen GI Exam: Non-Tender, Bowel Sounds Present Musculoskeletal MS Exam: Normal Tone ( ) Integumentary Skin Exam: Warm Skin Remarks Pressure device over the right wrist, following cardiac catheterization Extremeties Extremities Exam: No Edema Neurologic Neuro Exam: Awake, Oriented Psychiatric Psych Exam: Appropriate Responses Assessment/Plan Assessment/Plan Assessment Acute coronary syndrome LAD stenosis Status post LAD stenting 11/10/16 Uncontrolled diabetes mellitus Uncontrolled severe hyper triglyceridemia Obesity Management Continue Effient Discharge home today Long discussion with patient and his He needs to lose weight, avoid carbohydrates, his blood pressure better controlled Starting Repatha today Discussed with geochemical laboratory technician Dr. Calix Discussed with nurse Discharge Minutes: 45 Jessica Love MD Nov 10, 2016 15:19
--- NOTE | 2016-11-10 15:40 | EKG ---
Date Performed: 11/09/2016 Time Performed: 14:13:49 PTAGE: 51 years EKG: Sinus rhythm POOR R WAVE PROGRESSION RIGHTWARD AXIS PREVIOUS TRACING : 11/05/2015 08.41 No significant change from previous tracing noted. DOCTOR: Anibal Saeed Interpretating Date/Time 11/10/2016 15:39:03
--- NOTE | 2016-11-10 17:16 | EC ---
Study Study Date:11/10/2016 STUDY CONCLUSIONS SUMMARY LEFT VENTRICLE: The cavity size was normal. Wall thickness was normal. Systolic function was normal. The estimated ejection fraction was in the range of 55% to 60%. Wall motion was normal; there were no regional wall motion abnormalities. If LV function is below 40, please consider prescribing an ACEI or ARB or document rationale for non-use. PROCEDURE DATA STUDY STATUS: Elective. Procedure: Transthoracic echocardiography. Image quality was good. Scanning was performed from the parasternal, apical, and subcostal acoustic windows. Study completion: The patient tolerated the procedure well. Transthoracic echocardiography. M-mode, complete 2D, complete spectral Doppler, and color Doppler. Patient status: Inpatient. CARDIAC ANATOMY LEFT VENTRICLE: The cavity size was normal. Wall thickness was normal. Systolic function was normal. The estimated ejection fraction was in the range of 55% to 60%. Wall motion was normal; there were no regional wall motion abnormalities. AORTIC VALVE: Trileaflet; normal thickness leaflets. Doppler: Transvalvular velocity was within the normal range. There was no stenosis. No regurgitation. AORTA: Aortic root: The aortic root was normal in size. MITRAL VALVE: Structurally normal valve. Doppler: Transvalvular velocity was within the normal range. There was no evidence for stenosis. No regurgitation. Peak gradient: 3mm Hg (D). LEFT ATRIUM: The atrium was normal in size. RIGHT VENTRICLE: The cavity size was normal. Wall thickness was normal. PULMONIC VALVE: Doppler: Transvalvular velocity was within the normal range. There was no evidence for stenosis. No regurgitation. TRICUSPID VALVE: Structurally normal valve. Doppler: Transvalvular velocity was within the normal range. No regurgitation. PULMONARY ARTERY: The main pulmonary artery was normal-sized. Systolic pressure was within the normal range. RIGHT ATRIUM: The atrium was normal in size. PERICARDIUM: There was no pericardial effusion. SYSTEMIC VEINS: Inferior vena cava: The vessel was normal in size. BASIC MEASUREMENTS ADULT Normal Left ventricle LV internal dimension, ED, chordal level, 51.4 mm 43-52 PLAX LV internal dimension, ES, chordal level, *40.8 mm 23-38 PLAX Fractional shortening, chordal level, PLAX *21 % >29 LV posterior wall thickness, ED 8.2 mm IVS/LVPW ratio, ED 1 <1.3 Ventricular septum Septal thickness, ED 8.23 mm Aortic valve Leaflet separation 23 mm 15-26 Left atrium Anterior-posterior dimension 34 mm BASIC MEASUREMENTS ADULT Normal Aortic valve Leaflet separation 23 mm 15-26 Aorta Root diameter, ED 35 mm 20-37 DOPPLER MEASUREMENTS ADULT Normal Main pulmonary artery Pressure, S 20 mm Hg =30 Mitral valve Peak E-wave velocity 86.4 cm/s Peak A-wave velocity 62.7 cm/s Peak gradient, D 3 mm Hg Peak E/A ratio 1.4 Tricuspid valve Regurgitant peak velocity 103 cm/s Peak RV-RA gradient, S 4 mm Hg Maximal regurgitant velocity 103 cm/s Systemic veins Estimated CVP 5 mm Hg Right ventricle RV pressure, S 20 mm Hg <30 LEGEND: Mean values are shown as u=mean value. Asterisk (*) falnagan values outside specified normal range. Prepared and signed by Nilesh Shen [id number]
[2016-11-10] MEDS ORDERED: TEMAZEPAM 15 MG CAP PO SCH (21:00)
[2016-11-11] MEDS ORDERED: ISOSORBIDE MONONITRATE 60 MG TAB PO SCH (07:00)
--- NOTE | 2016-11-12 17:35 | HHI.DS ---
Discharge Summary Admission Date Nov 09, 2016 at 16:09 Discharge Date: Nov 10, 2016 Admitting Diagnosis chest pain, rule out ACS, hyperglycemia (1) Chest pain Diagnosis: Principal (2) Peripheral arterial disease Diagnosis: Secondary (3) Peripheral neuropathy Diagnosis: Secondary (4) Hyperlipidemia Diagnosis: Secondary (5) Coronary artery disease Diagnosis: Secondary (6) Diabetes mellitus, insulin dependent (IDDM), uncontrolled Diagnosis: Secondary (7) Hypertriglyceridemia Diagnosis: Secondary (8) Cardiomegaly Diagnosis: Secondary Procedures Cardiac catheterization Brief History This was a pleasant 51-year-old male with significant past medical history of coronary artery disease and previous stent per Dr. taylor June 2015, PAD, type 1 diabetes with hyperosmolar syndrome, hypertriglyceridemia, hypertension, peripheral neuropathy. Patient presented to the emergency room with complaint of intermittent chest pain for the last couple weeks as well as abnormal lab work. He went to see his primary care physician had laboratory workup done and was told to come to the emergency room. Triglycerides were noted elevated at 1475. Hemoglobin A1c was reported as 11.4. Patient endorsed that he was not able to tolerate lipid-lowering agent secondary to myalgias. He was recently prescribed Repatha but it has not arrived yet. Additionally he endorsed to his PCP that he's noted chest pressure, cramping and tightness over left chest wall. Sometimes he has stiffness of the left arm and neck associated with some nausea and night sweats. These episodes last approximately 1 hour. Denies any shortness of breath with CP episodes however he's noted some dyspnea with going up the stairs. He last saw Dr. Taylor July 2016 for a follow-up. He had been compliant with medications other than his statins. CBC/BMP: 11/10/16 0316 11/10/16 0316 Significant Findings Laboratory Tests Test 11/09/16 11/10/16 20:47 03:16 Troponin I LESS THAN 0.02 LESS THAN 0.02 NG/ML NG/ML (0.02-0.05) (0.02-0.05) Red Blood Count 4.43 MIL/MM3 (4.50-5.90) Hematocrit 38.2 % (39.0-51.0) Platelet Count 101 TH/MM3 (150-450) Eosinophils (%) (Auto) 4.1 % (0.0-4.0) Random Glucose 263 MG/DL (74-106) Imaging Last Impressions Chest X-Ray 11/09/16 2723 Signed Impressions: Service Date/Time: Wednesday, November 09, 2016 14:20 - CONCLUSION: Cardiomegaly. No acute cardiopulmonary disease. Maximino Pandya MD PE at Discharge General Appearance: No Acute Distress, Obese Eyes Eye Exam: Pupils Reactive Ears & Nose Ears & Nose Exam: Nasal Mucosa [place] Throat Throat Exam: Oral Mucosa [place] & Moist Neck Neck Exam: Neck Supple Pulmonary Resp Exam: Clear Bilaterally ( ), Breath Sounds Equal Cardiology CV Exam: Normal Sinus Rhythm Gastrointestinal/Abdomen GI Exam: Non-Tender, Bowel Sounds Present Musculoskeletal MS Exam: Normal Tone ( ) Integumentary Skin Exam: Warm Skin Remarks Pressure device over the right wrist, following cardiac catheterization Extremeties Extremities Exam: No Edema Neurologic Neuro Exam: Awake, Oriented Psychiatric Psych Exam: Appropriate Responses Hospital Course Patient was evaluated in the emergency room, first set of troponin was negative. He was noted with uncontrolled blood glucose, 407. Stated he was a "brittle diabetic" and is on very large doses of Levemir. Chest x-ray completed shows cardiomegaly, no acute cardiopulmonary disease. In the emergency room he had some minor left-sided chest tightness, no shortness of breath. He was somewhat anxious and didn't really want to come to the hospital however he felt that the symptoms were ongoing and he was concerned that this could be another cardiac event. Pt. was admitted for further evaluation and treatment. Patient was stabilized with his pain, vital signs were monitored as well as his labs. Cardiology consult was requested. Patient was evaluated for heart catheter to be done the next day. Patient tolerated procedure well. Findings include: Severe mid left anterior descending coronary stenosis. Normal left-sided filling pressures. Patient received cardiac stent to his left anterior descending coronary artery. The patient was monitored closely post procedure and had no complications. Patient's medicines were reviewed and he was started on a long-acting nitrate for his small vessel disease. Patient was stabilized and was discharged home. Patient will follow-up with his PCP and emergency room specialist within the next week or 2. Stable on discharge Pt Condition on Discharge: Stable Discharge Disposition: Discharge Home Discharge Instructions DIET: Follow Instructions for: Heart Healthy Diet, Diabetic Diet Additional Diet Instructions: Avoid carbohydrates Activities you can perform: Weight Bearing as [employer] Follow up Referrals: Cardiology - [address] TAYLOR Endocrinology - 1 Week Continued Medications: Aspirin (Aspirin) 81 Mg Chew 81 MG CHEW DAILY Ref 0 TAB Evolocumab PF Inj (Repatha PF Inj) 140 Mg/Ml Syr 140 MG SQ BIWEEKLY Insulin Aspart Inj (Novolog Flexpen Inj) 300 Unit/3 Ml Pen 1 UNITS SQ Blood Sugar Management #0 Ref 0 PEN Insulin Detemir Inj (Levemir Flextouch Pen Inj) 300 unit/3 ML Pen 120 UNITS SQ BID Blood Sugar Management Ref 0 PEN Lisinopril (Lisinopril) 5 Mg Tab 5 MG PO DAILY Blood Pressure Management #0 Ref 0 TAB Nitroglycerin SL (Nitrostat SL) 0.4 Mg Subl 0.4 MG SL DIRECTED 1 tablet under the tongue as needed for chest pain. Repeat every 5 minutes for a total of 3 DOSES or call 911 if NO relief. PRN CHEST PAIN #0 Ref 0 TAB.SL Prasugrel (Effient) 10 Mg Tab 10 MG PO DAILY Blood Clot Prevention #0 Ref 0 TAB Pregabalin (Lyrica) 100 Mg Cap 100 MG PO TID #0 Ref 0 CAP Elissa Sierra Nov 12, 2016 17:35
== END 2016-11-10 18:00 | disposition home or self-care (01) ==
LOC: NEPE 14:03 → INTOOBSV 16:09 → NEDA 16:09 → N04B 21:27 → HCIS 11-10 12:51
PROVIDERS: ADMIT Specialist; ATTEND Specialist
DX: I25.118 Atherosclerotic heart disease of native coronary artery with other forms of angina pectoris (principal); D69.6 Thrombocytopenia, unspecified; I11.9 Hypertensive heart disease without heart failure; I51.7 Cardiomegaly; E10.42 Type 1 diabetes mellitus with diabetic polyneuropathy; E87.0 Hyperosmolality and hypernatremia; M10.9 Gout, unspecified; E78.00 Pure hypercholesterolemia, unspecified; I73.9 Peripheral vascular disease, unspecified; E78.1 Pure hyperglyceridemia; R06.00 Dyspnea, unspecified; Z79.4 Long term (current) use of insulin; Z95.5 Presence of coronary angioplasty implant and graft; E10.65 Type 1 diabetes mellitus with hyperglycemia
CPT/HCPCS: 71010; 80048; 82550; 82552; 82948; 83735; 84484; 85025; 85610; 85730; 92928; 93005; 93306; 93454; 93571; 96372; 99285; C1769; C1874; C1887; C1893; G0378; J0153; J0583; J1644; J1815; J2250; J3010; J7040; Q9967

== ENCOUNTER 2017-07-17 17:24 | Emergency (ER) | payer SELFPAY ==
[~2017-07-17] VITALS: Ht 180.3 cm; Wt 93.0 kg
[~2017-07-17 17:24] MED LIST changes: +ASPI-516 CHEW; -ATOR40TA49 PO; -CARV3.125 PO; -ECOT81TA2 PO; +EVOL1.7I SQ; +INSU1INJ5 SQ; -ISOS30 PO; -LEVEMIR SC; +LISI-519 PO; -LISI5 PO; +LYRI100C PO; +NITR0.4S SL; +NOVOINJ3 SQ; -NOVOLOGSS SQ; -PRAS10 PO; +PRAS10TA PO
[2017-07-17 17:26] VITALS: BP 189/101; PULSE 104; RESP 16; TEMP 98.8; O2SAT 95
[2017-07-17] MEDS ORDERED: SODIUM CHLOR 0.9% 1000 ML INJ 1,000 ML IV ONE (17:43)
[2017-07-17] MEDS ORDERED: SODIUM CHLORIDE 0.9% FLUSH 10 ML FLUSH IVF PRN (17:45)
[2017-07-17] MEDS ORDERED: PENICILLIN V POTASSIUM 500 MG TAB PO ONE (17:45)
[2017-07-17] MEDS ORDERED: LIDOCAINE HCL 1% 50 ML VIAL INFIL ONE (17:45)
--- NOTE | 2017-07-17 17:49 | PD ---
HPI Chief Complaint: Oral / Dental Pain or Problem Time Seen by Provider: 17:32 Travel History International Travel<30 days: No Contact w/Intl Traveler<30days: No Traveled to known affect area: No History of Present Illness HPI 52-year-old male with history of diabetes here for evaluation of dental pain and possible infection. The patient reports that his symptoms started with pain 2 days ago. He has noted slight left facial swelling. Pain significantly worsened yesterday evening and is currently 10 out of 10, sharp, radiates to his left ear, constant, worse with movements. He denies fevers or chills. No difficulty swallowing or breathing. PFSH Past Medical History Asthma: No Autoimmune Disease: No Blood Disorders: Yes (THROMBOCYTOPENIA ) Anxiety: Yes Depression: Yes Heart Rhythm Problems: No Cancer: No Cardiac Catheterization: Yes (x 4; has 2 stents) Cardiovascular Problems: Yes (MT, STENTS) High Cholesterol: Yes Chemotherapy: No Chest Pain: Yes Congestive Heart Failure: No COPD: No Diabetes: Yes Diminished Hearing: No Endocrine: Yes Gastrointestinal Disorders: Yes Gout: Yes Genitourinary: No Hypertension: Yes Immune Disorder: No Implanted Vascular Access Dvce: No Musculoskeletal: No Neurologic: No Psychiatric: Yes Reproductive: Yes (ERECTILE DYSFUNCTION) Respiratory: No Immunizations Current: Yes Myocardial Infarction: Yes Radiation Therapy: No Sickle Cell Disease: No Sleep Apnea: Yes (fixed with tonsils out) Thyroid Disease: No Triglycerides - High: Yes Past Surgical History Abdominal Surgery: No AICD: No Arteriovenous Shunt: No Body Medical Devices: CARDIAC STENT Cardiac Surgery: Yes Ear Surgery: No Endocrine Surgery: Yes (TONSILECTOMY) Eye Surgery: No Genitourinary Surgery: No Gynecologic Surgery: No Insulin Pump: No Joint Replacement: No Neurologic Surgery: No Oral Surgery: No Pacemaker: No Thoracic Surgery: No Tonsillectomy: Yes Other Surgery: Yes (TONSILS) Social History Alcohol Use: No Tobacco Use: No Substance Use: No (hx etoh abuse) Allergies-Medications (Allergen,Severity, Reaction): Coded Allergies: No Known Allergies (Unverified Adverse Reaction, Unknown, 07/17/17) Reported Meds & Prescriptions Reported Meds & Active Scripts Active Reported Repatha PF Inj (Evolocumab PF Inj) 140 Mg/Ml Syr 140 Mg SQ BIWEEKLY Effient (Prasugrel) 10 Mg Tab 10 Mg PO DAILY Levemir Flextouch Pen Inj (Insulin Detemir) 300 unit/3 ML Pen 120 Units SQ BID Novolog Flexpen Inj (Insulin Aspart) 300 Unit/3 Ml Pen 1 Units SQ Nitrostat SL (Nitroglycerin) 0.4 Mg Subl 0.4 Mg SL DIRECTED PRN 1 tablet under the tongue as needed for chest pain. Repeat every 5 minutes for a total of 3 DOSES or call 911 if NO relief. Lyrica (Pregabalin) 100 Mg Cap 100 Mg PO TID Lisinopril 5 Mg Tab 5 Mg PO DAILY Aspirin 81 Mg Chew 81 Mg CHEW DAILY Review of Systems Except as stated in HPI: all other systems reviewed are Neg Physical Exam Narrative GENERAL: Well-developed, well-nourished, comfortable, no apparent distress. SKIN: Focused skin assessment warm/dry. HEAD: Atraumatic. Normocephalic. EYES: Pupils equal and round. No scleral icterus. No injection or drainage. ENT: No nasal bleeding or discharge. Mucous membranes pink and moist. Normal pharynx. Mild left facial swelling. Poor dentition with tenderness to the left lower molar. No sublingual swelling. No submental swelling or induration. No drooling or stridor. No trismus. NECK: Trachea midline. No JVD. No nuchal rigidity. CARDIOVASCULAR: Regular rate and rhythm. RESPIRATORY: No accessory muscle use. Clear to auscultation. Breath sounds equal bilaterally. GASTROINTESTINAL: Abdomen soft, non-tender, nondistended. MUSCULOSKELETAL: No obvious deformities. No clubbing. No cyanosis. No edema. NEUROLOGICAL: Awake and alert. No obvious cranial nerve deficits. Motor grossly within normal limits. Normal speech. PSYCHIATRIC: Appropriate mood and affect; insight and judgment normal. Data Data Last Documented VS Vital Signs Date Time Temp Pulse Resp B/P (MAP) Pulse Ox O2 Delivery O2 Flow Rate FiO2 07/17/17 18:21 98 Room Air 07/17/17 17:58 72 18 07/17/17 17:26 98.8 Orders Orders Blood Glucose (07/17/17 17:36) Lidocaine 1% Inj (50 Ml) (Xylocaine 1% I (07/17/17 17:45) Complete Blood Count With Diff (07/17/17 17:43) Comprehensive Metabolic Panel (07/17/17 17:43) Beta Hydroxybutyrate (Acetone) (07/17/17 17:43) Urinalysis - C+S If Indicated (07/17/17 17:43) Blood Gas Venous (Vbg) (07/17/17 17:43) Ecg Monitoring (07/17/17 17:43) Iv Access Insert/Monitor (07/17/17 17:43) Oximetry (07/17/17 17:43) NPO (07/17/17 17:43) Sodium Chlor 0.9% 1000 Ml Inj (Ns 1000 M (07/17/17 17:43) Sodium Chloride 0.9% Flush (Ns Flush) (07/17/17 17:45) Penicillin V Potassium (Veetids) (07/17/17 17:45) Ibuprofen (Motrin) (07/17/17 18:30) Labs Laboratory Tests Test 07/17/17 17:55 07/17/17 18:00 07/17/17 18:03 Urine Color LIGHT-YELLOW Urine Turbidity CLEAR Urine pH 7.0 Urine Specific [place] 1.030 Urine Protein NEG mg/dL Urine Glucose (UA) 1000 mg/dL Urine Ketones NEG mg/dL Urine Occult Blood NEG Urine Nitrite NEG Urine Bilirubin NEG Urine Urobilinogen 2.0 MG/DL Urine Leukocyte Esterase NEG Urine RBC LESS THAN 1 /hpf Urine WBC LESS THAN 1 /hpf Microscopic Urinalysis Comment CULT NOT INDICATED White Blood Count 9.0 TH/MM3 Red Blood Count 5.13 MIL/MM3 Hemoglobin 16.4 GM/DL Hematocrit 46.7 % Mean Corpuscular Volume 91.1 FL Mean Corpuscular Hemoglobin 32.0 PG Mean Corpuscular Hemoglobin Concent 35.1 % Red Cell Distribution Width 13.9 % Platelet Count 113 TH/MM3 Mean Platelet Volume 8.0 FL Neutrophils (%) (Auto) 72.5 % Lymphocytes (%) (Auto) 16.8 % Monocytes (%) (Auto) 5.9 % Eosinophils (%) (Auto) 3.8 % Basophils (%) (Auto) 1.0 % Neutrophils # (Auto) 6.5 TH/MM3 Lymphocytes # (Auto) 1.5 TH/MM3 Monocytes # (Auto) 0.5 TH/MM3 Eosinophils # (Auto) 0.3 TH/MM3 Basophils # (Auto) 0.1 TH/MM3 CBC Comment DIFF FINAL Differential Comment Blood Urea Nitrogen 11 MG/DL Creatinine 1.10 MG/DL Random Glucose 306 MG/DL Total Protein 8.2 GM/DL Albumin 4.0 GM/DL Calcium Level 9.0 MG/DL Alkaline Phosphatase 96 U/L Aspartate Amino Transf (AST/SGOT) 26 U/L Alanine Aminotransferase (ALT/SGPT) 38 U/L Total Bilirubin 1.5 MG/DL Sodium Level 131 MEQ/L Potassium Level 4.1 MEQ/L Chloride Level 95 MEQ/L Carbon Dioxide Level 29.9 MEQ/L Anion Gap 6 MEQ/L Estimat Glomerular Filtration Rate 71 ML/MIN B-Hydroxybutyrate 0.30 MMOL/L Blood Gas Puncture Site IV Blood Gas Patient Temperature 98.6 Venous Blood pH 7.37 Venous Blood Partial Pressure CO2 51 mmHg Venous Blood Partial Pressure O2 25 mmHg Venous Blood HCO3 29 mmol/L Venous Blood Oxygen Saturation 37 % Venous Blood Oxygen Content 8.7 Vol % Venous Blood Base Excess 4.2 mmol/L Blood Gas Inspired Oxygen 21 % MDM Medical Decision Making Medical Screen Exam Complete: Yes Emergency Medical Condition: Yes Differential Diagnosis Dental cavity, dental infection, periapical abscess, Jan angina unlikely Narrative Course BGL his 360s. Labs will be performed to rule out DKA. Initial vital signs show heart rate 104, blood pressure 189/101, pulse ox 95% on room air, oral temp of 98.8F. The patient denies chest pain, paresthesias, or motor deficits. He is not displaying any signs or symptoms of hypertensive crisis. Left inferior alveolar nerve block performed by me. See procedure note. CBC: WBC 9, hemoglobin 16.4, hematocrit 46.7, platelets 113. CMP is remarkable for sodium 131, chloride 95, random glucose 306. Bicarbonate is 29.9. Beta hydroxybutyrate is 0.30. Venous blood gas pH is 7.37. The patient is not in DKA. He was made aware of all findings. He prefers to manage his blood sugar at home. Plan is to discharge him home with a prescription for Pen-Vee K and Percocet. He was advised to follow-up with a dentist as soon as possible. He was informed on when to return to the emergency department. He verbalizes understanding and agreement with plan. Procedures Procedure Narrative Left inferior alveolar nerve block: 1 cc of 1% lidocaine was injected in the area of the left inferior alveolar nerve. The patient experienced some relief of pain afterwards. No complications. Tolerated well. Diagnosis Primary Impression: Dental infection Referrals: Dentist 1 day Additional Instructions: Follow-up with a dentist as soon as possible. Take antibiotic as prescribed. Return to the emergency department for worsening symptoms or any other concerns. Scripts Oxycodone-Acetaminophen (Percocet) 10-325 mg Tab 1 TAB PO Q6H Y for PAIN, #12 TAB 0 Refills Prov: Max Singer MD 07/17/17 Penicillin V Potassium (Penicillin V Potassium) 500 Mg Tab 500 MG PO Q6H for Infection for 10 Days, #40 TAB 0 Refills Prov: Max Singer MD 07/17/17 Disposition: 01 DISCHARGE HOME Condition: Stable Max Singer MD Jul 17, 2017 17:49
[2017-07-17 17:58] VITALS: BP 189/92; PULSE 72; RESP 18; O2SAT 98
[2017-07-17 18:08] LABS: BLOOD GAS VENOUS BASE EXCESS 4.2 mmol/L (-2-2); BLOOD GAS VENOUS HCO3 29 mmol/L (22-26); BLOOD GAS VENOUS O2 CONTENT 8.7 Vol % (9.0-17.0); BLOOD GAS VENOUS O2 HGB SAT 37 % (70-76); BLOOD GAS VENOUS PCO2 51 mmHg (44-48); BLOOD GAS VENOUS PO2 25 mmHg (35-40); BLOOD GAS VENOUS pH 7.37 (7.360-7.400); TEMP CORR TO 98.6
[2017-07-17 18:09] LABS: CRITICAL VALUE YES; DRAW SITE IV; FIO2 21 %; STAT YES
[2017-07-17 18:21] VITALS: O2SAT 98
[2017-07-17 18:27] LABS: BLOOD, URINE NEG (NEG); GLUCOSE,URINE 1000 mg/dL (NEG); KETONE, URINE NEG (NEG); NITRITE,URINE NEG (NEG); URINE COLOR LIGHT-YELLOW (YELLW/STRAW)
[2017-07-17] MEDS ORDERED: IBUPROFEN 600 MG TAB PO ONE (18:30)
[2017-07-17 18:31] LABS: AUTOMATED NEUTROPHIL # 6.5 TH/MM3 (1.8-7.7); BASOPHIL # 0.1 TH/MM3 (0-0.2); EOSINOPHIL # 0.3 TH/MM3 (0-0.4); EOSINOPHIL % 3.8 % (0.0-4.0); HEMATOCRIT 46.7 % (39.0-51.0); HEMO FLAGS DIFF FINAL; LYMPH % 16.8 % (9.0-44.0); LYMPHOCYTE # 1.5 TH/MM3 (1.0-4.8); MEAN CELL VOLUME 91.1 FL (80.0-100.0); MEAN CORPUSCULAR HGB CONC 35.1 % (32.0-36.0); MONO % 5.9 % (0.0-8.0); NEUT % 72.5 % (16.0-70.0); PLATELET COUNT 113 TH/MM3 (150-450); RED BLOOD COUNT 5.13 MIL/MM3 (4.50-5.90); RED CELL DISTRIBUTION WIDTH 13.9 % (11.6-17.2)
[2017-07-17 18:33] LABS: COMMENT (UR) CULT NOT INDICATED; CULTURE IF INDICATED CULT NOT INDICATED
[2017-07-17 18:55] LABS: ALKALINE PHOSPHATASE 96 U/L (45-117); ALT (GPT) 38 U/L (12-78); TOTAL BILIRUBIN ADULT 1.5 MG/DL (0.2-1.0)
[2017-07-17 19:09] LABS: ANION GAP 6 MEQ/L (5-15); AST (GOT) 26 U/L (15-37); BICARBONATE 29.9 MEQ/L (21.0-32.0); BLOOD UREA NITROGEN 11 MG/DL (7-18); CHLORIDE 95 MEQ/L (98-107); GLOMERULAR FILTRATION RATE 71 ML/MIN (>89); POTASSIUM 4.1 MEQ/L (3.5-5.1); SODIUM (NA) 131 MEQ/L (136-145)
[2017-07-17] MEDS ORDERED: PENI500T PO (19:22)
[2017-07-17] MEDS ORDERED: PERC10TA27 PO (19:22)
== END 2017-07-17 19:53 | disposition home or self-care (01) ==
LOC: NEPD 17:24
DX: K04.7 Periapical abscess without sinus (principal); D69.6 Thrombocytopenia, unspecified; E11.9 Type 2 diabetes mellitus without complications; M10.9 Gout, unspecified; I10 Essential (primary) hypertension; F41.9 Anxiety disorder, unspecified; F32.9 Major depressive disorder, single episode, unspecified; E78.00 Pure hypercholesterolemia, unspecified; I25.2 Old myocardial infarction
CPT/HCPCS: 64400; 80053; 81001; 82010; 82805; 85025; 96360; 99284; J7030

== ENCOUNTER 2017-12-23 21:37 | Observation (INO) | payer SELFPAY ==
[~2017-12-23] VITALS: Ht 180.3 cm; Wt 95.0 kg
[~2017-12-23 21:37] MED LIST changes: +PENI500T PO; +PERC10TA27 PO
[2017-12-23 21:56] VITALS: BP 161/83; PULSE 87; RESP 20; TEMP 97.8; O2SAT 96
[2017-12-23 22:05] VITALS: BP 159/92; PULSE 87; RESP 18; O2SAT 100
[2017-12-23] MEDS ORDERED: ESCI20TA PO (22:12)
[2017-12-23] MEDS ORDERED: ISOS60TA PO (22:12)
[2017-12-23] MEDS ORDERED: PREG300 PO (22:12)
[2017-12-23 22:13] VITALS: O2SAT 100
[2017-12-23 22:14] VITALS: BP_SYST 159; BP_SYST 160; BP_DIAS 90; BP_DIAS 92; PULSE 80; RESP 18; O2SAT 99
[2017-12-23] MEDS ORDERED: SODIUM CHLORIDE 0.9% FLUSH 10 ML FLUSH IVF PRN (22:15)
[2017-12-23] MEDS ORDERED: NITROGLYCERIN 0.4 MG SL 25 TABS/BTL SL ONE (22:30)
[2017-12-23] MEDS ORDERED: ASPIRIN 81 MG CHEW TAB PO ONE (22:30)
--- NOTE | 2017-12-23 22:32 | PD ---
HPI Chief Complaint: Chest Pain Time Seen by Provider: 22:15 Travel History International Travel<30 days: No Contact w/Intl Traveler<30days: No Traveled to known affect area: No History of Present Illness HPI 52-year-old male presents with central chest pain that goes up into his jaw and feels like a tightness. 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 He states November of last year he had a third stent placed into his maker. He states he had a stress test outpatient about a month ago that he has not got the results of yet through the [facility] clinic. He denies any other concurrent complaints. He states he took a baby aspirin this morning. Quality is tightness. Severity is moderate. He denies specific modifying factors. Duration is today. PFSH Past Medical History Hx Anticoagulant Therapy: Yes (EFFIENT ) Asthma: No Autoimmune Disease: No Blood Disorders: Yes (THROMBOCYTOPENIA ) Anxiety: Yes Depression: Yes Heart Rhythm Problems: No Cancer: No Cardiac Catheterization: Yes (x 4; has 2 stents) Cardiovascular Problems: Yes (NM, STENTS) High Cholesterol: Yes Chemotherapy: No Chest Pain: Yes Congestive Heart Failure: No COPD: No Diabetes: Yes Patient Takes Glucophage: No Diminished Hearing: No Endocrine: Yes Gastrointestinal Disorders: Yes Gout: Yes Genitourinary: No Heparin Induced Thrombocytopen: No Hypertension: Yes Immune Disorder: No Implanted Vascular Access Dvce: Yes Musculoskeletal: No Neurologic: No Psychiatric: Yes Reproductive: Yes (ERECTILE DYSFUNCTION) Respiratory: No Immunizations Current: Yes Myocardial Infarction: Yes Radiation Therapy: No Sickle Cell Disease: No Sleep Apnea: Yes (fixed with tonsils out) Thyroid Disease: No Triglycerides - High: Yes Tetanus Vaccination: > 5 Years Influenza Vaccination: No Past Surgical History Abdominal Surgery: No AICD: No Arteriovenous Shunt: No Body Medical Devices: CARDIAC STENT Cardiac Surgery: Yes Ear Surgery: No Endocrine Surgery: Yes (TONSILECTOMY) Eye Surgery: No Genitourinary Surgery: No Gynecologic Surgery: No Insulin Pump: No Joint Replacement: No Neurologic Surgery: No Oral Surgery: No Pacemaker: No Thoracic Surgery: No Tonsillectomy: Yes Other Surgery: Yes (TONSILS) Social History Alcohol Use: No Tobacco Use: No Substance Use: No (hx etoh abuse) Allergies-Medications (Allergen,Severity, Reaction): Coded Allergies: No Known Allergies (Unverified Adverse Reaction, Unknown, 12/23/17) Reported Meds & Prescriptions Reported Meds & Active Scripts Active Reported Lyrica (Pregabalin) 300 Mg Cap 500 Mg PO TID Escitalopram (Escitalopram Oxalate) 20 Mg Tab 20 Mg PO DAILY Isosorbide Mononitrate ER (Isosorbide Mononitrate) 60 Mg Tab 60 Mg PO DAILY Repatha PF Inj (Evolocumab PF Inj) 140 Mg/Ml Syr 140 Mg SQ BIWEEKLY Effient (Prasugrel) 10 Mg Tab 10 Mg PO DAILY Levemir Flextouch Pen Inj (Insulin Detemir) 300 unit/3 ML Pen 120 Units SQ BID Novolog Flexpen Inj (Insulin Aspart) 300 Unit/3 Ml Pen 1 Units SQ Nitrostat SL (Nitroglycerin) 0.4 Mg Subl 0.4 Mg SL DIRECTED PRN 1 tablet under the tongue as needed for chest pain. Repeat every 5 minutes for a total of 3 DOSES or call 911 if NO relief. Lyrica (Pregabalin) 100 Mg Cap 100 Mg PO TID Lisinopril 5 Mg Tab 5 Mg PO DAILY Aspirin 81 Mg Chew 81 Mg CHEW DAILY Review of Systems Except as stated in HPI: all other systems reviewed are Neg Physical Exam Narrative GENERAL: 52-year-old male in no apparent distress SKIN: Focused skin assessment warm/dry. HEAD: Atraumatic. Normocephalic. EYES: Pupils equal and round. No scleral icterus. No injection or drainage. ENT: No nasal bleeding or discharge. Mucous membranes pink and moist. NECK: Trachea midline. CARDIOVASCULAR: Regular rate and rhythm. RESPIRATORY: No accessory muscle use. Clear to auscultation. Breath sounds equal bilaterally. GASTROINTESTINAL: Abdomen soft, non-tender, nondistended. MUSCULOSKELETAL: No obvious deformities. No clubbing. No cyanosis. No edema. NEUROLOGICAL: Awake and alert. No obvious cranial nerve deficits. Motor grossly within normal limits. Normal speech. PSYCHIATRIC: Appropriate mood and affect; insight and judgment normal. Data Data Last Documented VS Vital Signs Date Time Temp Pulse Resp B/P (MAP) Pulse Ox O2 Delivery O2 Flow Rate FiO2 12/23/17 23:56 81 18 155/87 (109) 99 Room Air 12/23/17 21:56 97.8 Orders Orders Electrocardiogram (12/23/17 22:07) Ckmb (Isoenzyme) Profile (12/23/17 22:07) Complete Blood Count With Diff (12/23/17 22:07) Comprehensive Metabolic Panel (12/23/17 22:) Magnesium (Mg) (12/23/17 22:) Prothrombin Time / Inr (Pt) (12/23/17 22:) Act Partial Throm Time (Ptt) (12/23/17 22:) Troponin I (12/23/17 22:) Chest, Single Ap (12/23/17 22:07) Ecg Monitoring (12/23/17 22:) Bilateral Bp Monitoring (12/23/17 22:) Iv Access Insert/Monitor (12/23/17 22:) Oximetry (12/23/17 22:) Sodium Chloride 0.9% Flush (Ns Flush) (12/23/17 22:15) Aspirin Chew (Aspirin Chew) (12/23/17 22:30) Nitroglycerin Sl (Nitrostat Sl) (12/23/17 22:30) CKMB (12/23/17:) CKMB% (12/23/17:) Insulin Aspart Inj (Novolog Inj) (12/24/17 00:00) Blood Glucose (12/24/17 01:52) Admit Order (Ed Use Only) (12/24/17 01:59) Labs Laboratory Tests Test 12/23/17 22: White Blood Count 7.3 TH/MM3 Red Blood Count 5.13 MIL/MM3 Hemoglobin 15.6 GM/DL Hematocrit 44.5 % Mean Corpuscular Volume 86.7 FL Mean Corpuscular Hemoglobin 30.5 PG Mean Corpuscular Hemoglobin Concent 35.1 % Red Cell Distribution Width 14.1 % Platelet Count 129 TH/MM3 Mean Platelet Volume 8.3 FL Neutrophils (%) (Auto) 68.6 % Lymphocytes (%) (Auto) 20.7 % Monocytes (%) (Auto) 5.7 % Eosinophils (%) (Auto) 3.9 % Basophils (%) (Auto) 1.1 % Neutrophils # (Auto) 5.0 TH/MM3 Lymphocytes # (Auto) 1.5 TH/MM3 Monocytes # (Auto) 0.4 TH/MM3 Eosinophils # (Auto) 0.3 TH/MM3 Basophils # (Auto) 0.1 TH/MM3 CBC Comment DIFF FINAL Differential Comment Prothrombin Time 10.4 SEC Prothromb Time International Ratio 1.0 RATIO Activated Partial Thromboplast Time 32.7 SEC Blood Urea Nitrogen 16 MG/DL Creatinine 1.25 MG/DL Random Glucose 409 MG/DL Total Protein 8.0 GM/DL Albumin 3.7 GM/DL Calcium Level 9.4 MG/DL Magnesium Level 1.8 MG/DL Alkaline Phosphatase 95 U/L Aspartate Amino Transf (AST/SGOT) 26 U/L Alanine Aminotransferase (ALT/SGPT) 49 U/L Total Bilirubin 1.0 MG/DL Sodium Level 132 MEQ/L Potassium Level 4.4 MEQ/L Chloride Level 97 MEQ/L Carbon Dioxide Level 26.9 MEQ/L Anion Gap 8 MEQ/L Estimat Glomerular Filtration Rate 61 ML/MIN Total Creatine Kinase 122 U/L Creatine Kinase MB 3.3 NG/ML Troponin I LESS THAN 0.02 NG/ML MDM Medical Decision Making Medical Screen Exam Complete: Yes Emergency Medical Condition: Yes Medical Record Reviewed: Yes (Past history confirmed) Interpretation(s) EKG is sinus at 80 without STEMI criteria CBC & BMP Diagram 12/23/17 22:27 Total Protein 8.0, Albumin 3.7, Calcium Level 9.4, Magnesium Level 1.8, Alkaline Phosphatase 95, Aspartate Amino Transf (AST/SGOT) 26, Alanine Aminotransferase (ALT/SGPT) 49, Total Bilirubin 1.0 Last 24 hours Impressions Chest X-Ray 12/23/177 Signed Impressions: Service Date/Time: December 22:15 - CONCLUSION: No acute disease. Srikanth Hyman MD Differential Diagnosis NM, gastritis, DKA, musculoskeletal Narrative Course We will check blood work, EKG, chest x-ray and dose with aspirin and nitroglycerin and reevaluate On recheck patient is feeling better. Has not had any of his insulin. Will dose with 10 units of subcutaneous insulin now and if improves into the 300s will admit to the chest pain center Glucose is in the low 300s. Patient agrees to chest pain center observation Diagnosis Primary Impression: Chest pain Qualified Codes: R07.9 - Chest pain, unspecified Additional Impression: Diabetes mellitus, insulin dependent (IDDM), uncontrolled Qualified Codes: E10.65 - Type 1 diabetes mellitus with hyperglycemia Admitting Information Admitting Physician Requests: Observation Kezia Mai MD Dec 23, 2017 22:32
--- NOTE | 2017-12-23 22:37 | RADRPT ---
EXAM DATE/TIME: 12/23/2017 22:15 [facility] COMPARISON: CHEST SINGLE AP, November 09, 2016, 14:20. INDICATIONS : Chest pain. MEDICAL HISTORY : Hypertension. Diabetes mellitus type II. Myocardial infarction. SURGICAL HISTORY : Cardiac cath. Stents. ENCOUNTER: Initial ACUITY: 1 day PAIN SCORE: 5/10 LOCATION: Bilateral chest FINDINGS: A single view of the chest demonstrates the lungs to be symmetrically aerated without evidence of mas s, infiltrate or effusion. The cardiomediastinal contours are unremarkable. Osseous structures are intact. CONCLUSION: No acute disease. Srikanth Hyman MD on December 23, 2017 at 22:34 Board Certified Radiologist. This report was verified electronically.
[2017-12-23 22:50] LABS: BASOPHIL # 0.1 TH/MM3 (0-0.2); BASOPHIL % 1.1 % (0.0-2.0); EOSINOPHIL # 0.3 TH/MM3 (0-0.4); EOSINOPHIL % 3.9 % (0.0-4.0); HEMATOCRIT 44.5 % (39.0-51.0); HEMOGLOBIN 15.6 GM/DL (13.0-17.0); LYMPH % 20.7 % (9.0-44.0); LYMPHOCYTE # 1.5 TH/MM3 (1.0-4.8); MEAN CELL VOLUME 86.7 FL (80.0-100.0); MEAN CORPUSCULAR HEMOGLOBIN 30.5 PG (27.0-34.0); MEAN CORPUSCULAR HGB CONC 35.1 % (32.0-36.0); MEAN PLATELET VOLUME 8.3 FL (7.0-11.0); MONO % 5.7 % (0.0-8.0); MONOCYTE # 0.4 TH/MM3 (0-0.9); NEUT % 68.6 % (16.0-70.0); PLATELET COUNT 129 TH/MM3 (150-450); RED BLOOD COUNT 5.13 MIL/MM3 (4.50-5.90); RED CELL DISTRIBUTION WIDTH 14.1 % (11.6-17.2); WHITE BLOOD COUNT 7.3 TH/MM3 (4.0-11.0)
[2017-12-23 23:06] LABS: PROTHROMBIN TIME - PATIENT 10.4 SEC (9.8-11.6)
[2017-12-23 23:12] LABS: ALBUMIN 3.7 GM/DL (3.4-5.0); ALKALINE PHOSPHATASE 95 U/L (45-117); ALT (GPT) 49 U/L (12-78); AST (GOT) 26 U/L (15-37); BICARBONATE 26.9 MEQ/L (21.0-32.0); BLOOD UREA NITROGEN 16 MG/DL (7-18); CALCIUM 9.4 MG/DL (8.5-10.1); CHLORIDE 97 MEQ/L (98-107); CREATININE 1.25 MG/DL (0.60-1.30); GLOMERULAR FILTRATION RATE 61 ML/MIN (>89); GLUCOSE,RANDOM 409 MG/DL (74-106); MAGNESIUM 1.8 MG/DL (1.5-2.5); SODIUM (NA) 132 MEQ/L (136-145); TROPONIN I LESS THAN 0.02 NG/ML (0.02-0.05)
[2017-12-23 23:56] VITALS: BP 155/87; PULSE 81; RESP 18; O2SAT 99
[2017-12-24] MEDS ORDERED: INSULIN ASPART 1,000 UNITS/10 ML VIAL SQ ONE
[2017-12-24] MEDS ORDERED: IOHEXOL 350 MG/ML 50 ML BTL (for Cath Lab) OTHER ONE (02:01)
[2017-12-24] MEDS ORDERED: SODIUM CHLORIDE 0.9% FLUSH 10 ML FLUSH IV FLUSH PRN (02:15)
[2017-12-24] MEDS ORDERED: ALPRAZolam 0.25 MG TAB PO ONE (02:15)
[2017-12-24 02:27] VITALS: BP 147/88; PULSE 70; RESP 18; O2SAT 98
[2017-12-24 03:04] LABS: TROPONIN I LESS THAN 0.02 NG/ML (0.02-0.05)
[2017-12-24] MEDS ORDERED: MORPHINE SULFATE 4 MG/ML INJ IV PUSH ONE (04:30)
[2017-12-24 06:27] LABS: TROPONIN I LESS THAN 0.02 NG/ML (0.02-0.05)
--- NOTE | 2017-12-24 07:48 | HHI.HP ---
HPI Primary Care Physician Unknown History of Present Illness 52-year-old male with a past medical history of CAD, HLD, HTN, type 1 diabetes with neuropathy, PVD who presented with chest pain. The patient states he has been having his typical chest pain which is chest stiffness radiating down his left arm and up into his left neck. He states he has been having intermittent episodes lately they have been increasing in frequency and symptoms have now been constant for the past 36 hours. He states that he has had negative cardiac workups in the past with subsequent positive catheterizations and he is concerned that this is the case again. Serial cardiac enzymes and EKGs have been performed and are negative for any acute ischemic changes. (Boy Duffy) Review of Systems 10 point review of systems performed and was negative except as stated in the HPI (Boy Duffy) Past Family Social History Allergies: Coded Allergies: No Known Allergies (Unverified Adverse Reaction, Unknown, 12/23/17) Past Medical History Diabetes, with reported peripheral neuropathy and hyperosmolar syndrome Hypertension. Hyperlipidemia. Coronary artery disease. PAD Past Surgical History Significant for multiple cardiac catheterizations and stenting, last one in November 2016 with stent to LAD Reported Medications Reported Meds & Active Scripts Active Reported Lyrica (Pregabalin) 300 Mg Cap 500 Mg PO TID Escitalopram (Escitalopram Oxalate) 20 Mg Tab 20 Mg PO DAILY Isosorbide Mononitrate ER (Isosorbide Mononitrate) 60 Mg Tab 60 Mg PO DAILY Repatha PF Inj (Evolocumab PF Inj) 140 Mg/Ml Syr 140 Mg SQ BIWEEKLY Effient (Prasugrel) 10 Mg Tab 10 Mg PO DAILY Levemir Flextouch Pen Inj (Insulin Detemir) 300 unit/3 ML Pen 120 Units SQ BID Novolog Flexpen Inj (Insulin Aspart) 300 Unit/3 Ml Pen 1 Units SQ Nitrostat SL (Nitroglycerin) 0.4 Mg Subl 0.4 Mg SL DIRECTED PRN 1 tablet under the tongue as needed for chest pain. Repeat every 5 minutes for a total of 3 DOSES or call 911 if NO relief. Lyrica (Pregabalin) 100 Mg Cap 100 Mg PO TID Lisinopril 5 Mg Tab 5 Mg PO DAILY Aspirin 81 Mg Chew 81 Mg CHEW DAILY Active Ordered Medications Current Medications Medications (Trade) Dose Ordered Sig/Keli Route Start Time Stop Time Status Last Admin (NS Flush) 2 ml UNSCH PRN IVF 12/23/17 22:15 (NS Flush) 2 ml UNSCH PRN IV FLUSH 12/24/17 02:15 (NS Flush) 2 ml BID IV FLUSH 12/24/17 09:00 Family History His dad is [id number]. He suffers from diabetes and has heart disease with bypass grafting. His mother is alive but she does not follow-up with doctors and he does not know her health problems. His grandmother was diabeticalso. Social History The patient denies smoking. 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 He denies any drug abuse. (Boy Duffy) Physical Exam Vital Signs Vital Signs Date Time Temp Pulse Resp B/P (MAP) Pulse Ox O2 Delivery O2 Flow Rate FiO2 12/24/17 02:27 70 18 147/88 (107) 98 Room Air 12/23/17 23:56 81 18 155/87 (109) 99 Room Air 12/23/17 22:14 80 18 159/92 (114) 99 Room Air 160/90 (113) 12/23/17 22:13 100 Room Air 12/23/17 22:05 87 18 159/92 (114) 100 Room Air 12/23/17 21:56 97.8 87 20 161/83 (109) 96 Physical Exam GENERAL: Well-developed well-nourished. In no acute distress. NECK: No carotid bruits. No JVD. CARDIOVASCULAR: Regular rate and rhythm. No murmur appreciated. RESPIRATORY: No accessory muscle use. Clear to auscultation. Breath sounds equal bilaterally. MUSCULOSKELETAL: No clubbing or cyanosis. No edema. NEUROLOGICAL: Awake and alert. Normal speech. Laboratory Laboratory Tests Test 12/23/17 22:27 12/24/17 02:20 12/24/17 05:35 White Blood Count 7.3 Red Blood Count 5.13 Hemoglobin 15.6 Hematocrit 44.5 Mean Corpuscular Volume 86.7 Mean Corpuscular Hemoglobin 30.5 Mean Corpuscular Hemoglobin Concent 35.1 Red Cell Distribution Width 14.1 Platelet Count 129 Mean Platelet Volume 8.3 Neutrophils (%) (Auto) 68.6 Lymphocytes (%) (Auto) 20.7 Monocytes (%) (Auto) 5.7 Eosinophils (%) (Auto) 3.9 Basophils (%) (Auto) 1.1 Neutrophils # (Auto) 5.0 Lymphocytes # (Auto) 1.5 Monocytes # (Auto) 0.4 Eosinophils # (Auto) 0.3 Basophils # (Auto) 0.1 CBC Comment DIFF FINAL Differential Comment Prothrombin Time 10.4 Prothromb Time International Ratio 1.0 Activated Partial Thromboplast Time 32.7 Blood Urea Nitrogen 16 Creatinine 1.25 Random Glucose 409 Total Protein 8.0 Albumin 3.7 Calcium Level 9.4 Magnesium Level 1.8 Alkaline Phosphatase 95 Aspartate Amino Transf (AST/SGOT) 26 Alanine Aminotransferase (ALT/SGPT) 49 Total Bilirubin 1.0 Sodium Level 132 Potassium Level 4.4 Chloride Level 97 Carbon Dioxide Level 26.9 Anion Gap 8 Estimat Glomerular Filtration Rate 61 Total Creatine Kinase 122 93 78 Creatine Kinase MB 3.3 Troponin I LESS THAN 0.02 LESS THAN 0.02 LESS THAN 0.02 (Boy Duffy) Result Diagram: 12/23/17222612/23/172226 Imaging Last Impressions Chest X-Ray 12/23/172206 Signed Impressions: Service Date/Time: December 22:15 - CONCLUSION: No acute disease. Srikanth Hyman MD (Boy Duffy) Caprini VTE Risk Assessment Caprini VTE Risk Assessment: No/Low Risk (score <= 1) Caprini Risk Assessment Model Point Value = 1 Point Value = 2 Point Value = 3 Point Value = 5 Age 41-60 Minor surgery BMI > 25 kg/m2 Swollen legs Varicose veins or History of unexplained or recurrent spontaneous Oral contraceptives or hormone replacement Sepsis (< 1 month) Serious lung disease, including pneumonia (< 1 month) Abnormal pulmonary function Acute myocardial infarction Congestive heart failure (< 1 month) History of inflammatory bowel disease Medical patient at bed rest Age 61-74 Arthroscopic surgery Major open surgery (> 45 min) Laparoscopic surgery (> 45 min) Malignancy Confined to bed (> 72 hours) Immobilizing plaster cast Central venous access Age >= 75 History of VTE Family history of VTE Factor V Leiden Prothrombin [id number] Lupus anticoagulant Anticardiolipin antibodies Elevated serum homocysteine Heparin-induced thrombocytopenia Other congenital or acquired thrombophilia Stroke (< 1 month) Elective arthroplasty Hip, pelvis, or leg fracture Acute spinal cord injury (< 1 month) Prophylaxis Regimen Total Risk Factor Score Risk Level Prophylaxis Regimen 0-1 Low Early ambulation 2 Moderate Order ONE of the following: *Sequential Compression Device (SCD) *Heparin 5000 units SQ BID 3-4 Higher Order ONE of the following medications: *Heparin 5000 units SQ TID *Enoxaparin/Lovenox 40 mg SQ daily (WT < 150 kg, CrCl > 30 mL/min) *Enoxaparin/Lovenox 30 mg SQ daily (WT < 150 kg, CrCl > 10-29 mL/min) *Enoxaparin/Lovenox 30 mg SQ BID (WT < 150 kg, CrCl > 30 mL/min) AND/OR *Sequential Compression Device (SCD) 5 or more Highest Order ONE of the following medications: *Heparin 5000 units SQ TID (Preferred with Epidurals) *Enoxaparin/Lovenox 40 mg SQ daily (WT < 150 kg, CrCl > 30 mL/min) *Enoxaparin/Lovenox 30 mg SQ daily (WT < 150 kg, CrCl > 10-29 mL/min) *Enoxaparin/Lovenox 30 mg SQ BID (WT < 150 kg, CrCl > 30 mL/min) AND *Sequential Compression Device (SCD) (Boy Duffy) Assessment and Plan Assessment and Plan 52-year-old male with a past medical history of CAD, HLD, HTN, type 1 diabetes with neuropathy, PVD who presented with chest pain. Chest pain with symptoms suggesting unstable angina: Keep n.p.o. and plan for cardiac catheterization today. Discussed Condition With Patient, RN, Dr. Calix (Boy Duffy) Assessment and Plan unstable anginal symptoms. progressive. acute coronary syndrome [facility] today (Buck Calix MD) Boy Duffy Dec 24, 2017 07:47 Buck Calix MD Dec 24, 2017 10:06
[2017-12-24 09:00] VITALS: BP 122/75; PULSE 62; RESP 18; O2SAT 98
[2017-12-24] MEDS ORDERED: SODIUM CHLORIDE 0.9% FLUSH 10 ML FLUSH IV FLUSH SCH (09:00)
[2017-12-24] MEDS ORDERED: ISOSORBIDE MONONITRATE 60 MG CR TAB (IMDUR) PO SCH (09:00)
[2017-12-24] MEDS ORDERED: LISINOPRIL 5 MG TAB PO SCH (09:00)
[2017-12-24 09:51] VITALS: BP 123/82; PULSE 78; O2SAT 97
[2017-12-24 10:01] VITALS: BP 120/80
[2017-12-24] MEDS ORDERED: MIDAZOLAM HCL 2 MG/2 ML VIAL ONE (10:13)
[2017-12-24] MEDS ORDERED: HEPARIN-NS/PF FLUSH BAG 2,000 ML IV FLUSH ONE (10:13)
[2017-12-24] MEDS ORDERED: HEPARIN SODIUM - IV 10,000 UNITS/10 ML VIAL ONE (10:14)
[2017-12-24] MEDS ORDERED: LIDOCAINE HCL 1% PF 30 ML VIAL ONE (10:16)
[2017-12-24] MEDS ORDERED: BIVALIRUDIN 250 MG VIAL ONE (10:27)
[2017-12-24] MEDS ORDERED: ISOS60TA PO (11:05)
--- NOTE | 2017-12-24 11:07 | HHI.DS ---
Discharge Summary Admission Date Dec 24, 2017 at 02:00 Discharge Date: Dec 24, 2017 Admitting Diagnosis chest pain Procedures [facility] CBC/BMP: 12/23/17222612/23/172226 Significant Findings Laboratory Tests Test 12/23/17 22:27 12/24/17 02:20 12/24/17 05:35 Platelet Count 129 TH/MM3 (150-450) Activated Partial Thromboplast Time 32.7 SEC (24.3-30.1) Random Glucose 409 MG/DL (74-106) Sodium Level 132 MEQ/L (136-145) Chloride Level 97 MEQ/L (98-107) Estimat Glomerular Filtration Rate 61 ML/MIN (>89) Troponin I LESS THAN 0.02 NG/ML LESS THAN 0.02 NG/ML LESS THAN 0.02 NG/ML PE at Discharge GENERAL: SKIN: Warm and dry. HEAD: Normocephalic. EYES: No scleral icterus. No injection or drainage. NECK: Supple, trachea midline. No JVD or lymphadenopathy. CARDIOVASCULAR: Regular rate and rhythm without murmurs, gallops, or rubs. RESPIRATORY: Breath sounds equal bilaterally. No accessory muscle use. GASTROINTESTINAL: Abdomen soft, non-tender, nondistended. MUSCULOSKELETAL: No cyanosis, or edema. BACK: Nontender without obvious deformity. No CVA tenderness. Hospital Course [facility] showed no significant stenosis restart isosorbide 60 (he ran out one week ago) FU PCP Pt Condition on Discharge: Good Discharge Disposition: Discharge Home Discharge Instructions DIET: Follow Instructions for: Heart Healthy Diet Activities you can perform: Weight Bearing as Buck Perry MD Dec 24, 2017 11:07
[2017-12-24] MEDS ORDERED: BACITRACIN OINT 0.9 GM PKT TOP ONE (11:15)
[2017-12-24] MEDS ORDERED: MISC INFORMATION XX ONE (11:15)
[2017-12-24] MEDS ORDERED: oxyCODONE/ACETAMINOPHEN 5 MG/325 MG TAB PO PRN (11:15)
--- NOTE | 2017-12-24 11:19 | CATHPROC ---
[employer] HIS Report Study Information Study Number Admission Scheduled Start Study Start [id number] Dec 24 2017 2:00AM 12/24/2017 Dec 24 2017 10:10AM [facility] Service Cardiac Catheterization Admit Source Facility Department Emergency department [facility] - Automotive Service Technician Physician and Clinical Staff Initial Buck Jackson Panel Fitterkaran Dao RN, Ancelmo Panel FitterAntonella Sampson RN Other cathlab, cathlab Recorder Willie Redman RCIS(BS) Scrub Mickie Roman RT(R) Procedures Performed Procedure Location (Site) Vessel Name Coronary Angiograms LCA Left Coronary Coronary Angiograms RCA Right Coronary Coronary Angiograms Radial (right) Radial Art. L Heart Cath Wire insertion Radial (right) Radial Art. Equipment Time Clinical Social Work Aide Description Size Mfg Part Number Used/Scraped COPILOT VALVE, BLEEDBACK [id number] 10:52 [employer] Used CONTROL *[id number] TRANSDUCER, TRUWAVE [id number] 10:31 YING BALDERRAMA * Used W/STOCKCOCK *[id number] *[id number] *[id number] WIRE, CHOICE PT 300CM PT EX. [id number] 10:44 [employer] 300CM Used SUPP *[id number] 10:31 Interview PACK, CCL CUSTOM * Used *[id number] 10:31 Interview SUPPORT, ARTERIAL ADULT [id number] *[id number] Used [id number] 10:31 [employer]el[employer] PACER PEN, SKIN DUAL W/ RULER * Used *[id number] 10:21 [employer] JR 5.0 DXTERITY CATHETER fr 5 [id number] Used BAND, RADIAL COMPRESSION TR [id number] 11:04 [employer] 29CM Used LARGE 29 *[id number] SHEATH, FR6 RADIAL PRELUDE 10:31 [employer] FR 6 [id number] Used EASE 11CM [id number] 10:31 [employer] WIRE, EXCHANGE 260CM 3MMJ 260CM Used *[id number] 10:31 [employer] OMNIPAQUE, 350 MG, 150ML 150ML [id number] Used [id number] 10:31 [employer],WARM AIR CCL * Used *[id number] 10:54 [employer] PRIME WIRE, VERRATA 185CM 185CM 47552 *[id number] Used Equipment Model, Serial, Lot Number and Expiration Data Description Model Number Serial Number Lot Number Expiration Date JR 5.0 DXTERITY CATHETER [id number] 04-07-2020 PRIME WIRE, VERRATA 185CM 7129 [id number] 12-04-2020 WIRE, CHOICE PT 300CM PT EX. [id number] 09-15-2019 SUPP History: Current Medications Medication Dosage/Unit Route Frequency Last Date/Time Taken EFFIENT ASA History: Allergies Allergy Reaction No Known Allergies History: Risk Factors Family History of Hypertension Dyslipidemia Previous IN Previous Heart Failure Premature CAD Yes Yes Yes Yes Yes Prior Valve Prior PCI Prior PCIDate Prior CABG Surgery No Yes 11/04/2016 No Cerebrovascular Peripheral Artery Chronic Lung On Dialysis Diabetes Diabetes Therapy Disease Disease Disease No No No No Yes Insulin History: Symptoms/Diagnosis Selection Items Chest pain History: Stress Tests Stress or Imaging Studies Performed No History: Other Disease Selection Items CAD HTN History: IN/CV Data Previous Cath Date 11/04/2016 History: Other Current Smoker No Labs Hgb (g/dl) Hct (%) WBC (l/cumm) Platelets (thousands) 11.60-17.00 35.00-51.00 4.00-11.00 150.00-450.00 15.6 44.5 7.3 129 Glucose (mg/dl) BUN (mg/dl) Creatinine (mg/dl) BUN:Creatinine (1:x) 74.00-106.00 7.00-18.00 0.50-1.30 10.00-20.00 409 16 1.2 13.3 Na (meq/l) K (meq/l) 136.00-145.00 3.50-5.10 132 4.4 INR (PTT:PT) 0.90-1.10 1 Troponin I (ng/ml) CPK-MB (ng/ML) 0.02-0.05 0.50-3.60 0.02 Not Drawn Medication Medication Total Dose (Bolus/Oral) Medication Total Dosage/Unit 1% XYLOCAINE 2 mL FENTANYL 125 mcg HEPARIN 8000 units NTG (IC) 200 mcg VERSED 3 mg Medications (Bolus/Oral) Medication Time Given Dosage/Unit Administered By Reason VERSED 12/24/2017 10:36:01 AM 1 mg Ancelmo Dao RN Patient arrived on 1 mg VERSED given by Ancelmo Dao RN in Right Antecubital via Peripheral IV. Order ed by Buck Calix. FENTANYL 12/24/2017 10:36:08 AM 25 mcg Ancelmo Dao RN Patient arrived on 25 mcg FENTANYL given by Feliberto RODRIGUEZ, Ancelmo in Right Antecubital via Peripheral IV. O rdered by Buck Calix. 1% XYLOCAINE 12/24/2017 10:39:19 AM 2 mL Buck Calix 2 mL 1% XYLOCAINE given in lab by Buck Calix in Right Radial via Subcutaneous. NTG (IC) 12/24/2017 10:40:41 AM 200 mcg Buck Calix 200 mcg NTG (IC) given in lab by Buck Calix in Right Radial via Intra-arterial. VERSED 12/24/2017 10:41:22 AM 1 mg Feliberto RODRIGUEZ, Ancelmo Patient arrived on 1 mg VERSED given by Feliberto RODRIGUEZ, Ancelmo in Right Antecubital via Peripheral IV. Order ed by Buck Calix. FENTANYL 12/24/2017 10:41:25 AM 25 mcg Feliberto RODRIGUEZAncelmo Patient arrived on 25 mcg FENTANYL given by Feliberto RODRIGUEZ, Ancelmo in Right Antecubital via Peripheral IV. O rdered by Buck Calix. HEPARIN 12/24/2017 10:47:14 AM 5000 units Feliberto RODRIGUEZ, Ancelmo 5000 units HEPARIN given in lab by Feliberto RODRIGUEZ, Ancelmo in Right Antecubital via Peripheral IV. Ordered by Buck Calix. VERSED 12/24/2017 10:54:07 AM 1 mg Feliberto RODRIGUEZ, Ancelmo Patient arrived on 1 mg VERSED given by Feliberto RODRIGUEZ, Ancelmo in Right Antecubital via Peripheral IV. Order ed by Buck Calix. FENTANYL 12/24/2017 10:54:10 AM 25 mcg Feliberto RODRIGUEZAncelmo Patient arrived on 25 mcg FENTANYL given by Feliberto RODRIGUEZ, Ancelmo in Right Antecubital via Peripheral IV. O rdered by Buck Calix. HEPARIN 12/24/2017 10:55:52 AM 3000 units Feliberto RODRIGUEZ, Ancelmo 3000 units HEPARIN given in lab by Feliberto RODRIGUEZ, Ancelmo in Right Antecubital via Peripheral IV. Ordered by Buck Calix. FENTANYL 12/24/2017 10:56:47 AM 25 mcg Feliberto RODRIGUEZ, Ancelmo Patient arrived on 25 mcg FENTANYL given by Feliberto RODRIGUEZ, Ancelmo in Right Antecubital via Peripheral IV. O rdered by Buck Calix. FENTANYL 12/24/2017 11:06:16 AM 25 mcg Feliberto RODRIGUEZ, Ancelmo 25 mcg FENTANYL given in lab by Feliberto RODRIGUEZ, Ancelmo in Right Antecubital via Peripheral IV. Ordered by Mi nor, Buck. Medication (Drip) Medication Time Given Dosage/Unit Concentration/Unit Diluent (ml) Solutio n IV Solutions 12/24/2017 10:10:57 AM 0 mL (IV) 500 NaCl .9 Patient arrived on IV Solutions in Right Antecubital via Peripheral IV. Pump/Drip Flow = 20 ml/hr usi ng NaCl .9. Initial Case Assessment Cardiovascular HR Rhythm NIBP Chest Pain 72 nsr 130/81 0 Edema Present Skin color Skin None Normal Warm Dry Circulatory - Right Pulses Dorsalis Pedis Femoral Radial 2 2 2 Scale (0,1,2,3,4,d) Scale (0,1,2,3,4,d) Neurological State Oriented to time-place- Alert Moves all extremities person Respiration - General Respiration Rate SpO2 (%) (B/min) 15 97 Final Case Assessment Cardiovascular HR Rhythm NIBP Chest Pain 71 nsr 124/70 0 Edema Present Skin color Skin None Normal Warm Dry Circulatory - Right Pulses Dorsalis Pedis Femoral Radial 2 2 2 Scale (0,1,2,3,4,d) Scale (0,1,2,3,4,d) Neurological State Oriented to time-place- Alert Moves all extremities person Respiration - General Respiration Rate SpO2 (%) (B/min) 15 97 Chronological Log Time Study Chronological Log 10:05:16 Patient arrived via Bed. 10:05:17 Patient Name, D.O.B, / Armband Verified By R.N. 10:05:18 Consent signed by the physician and the patient and verified by the Automotive Service Technician staff. 10:10:34 Pre-op and post- op instructions given; patient acknowledges understanding of instructions. 10:10:35 Verbal Stimulation=2 Physical Stimulation=2 Airway=2 Respiration=2 TOTAL=8. (0=absent, 1=li mited, 2=present) 10:10:35 Presedation assessment performed by Automotive Service Technician RN. 10:10:36 Allens test performed on the right radial and ulnar artery. POSITIVE. 10:10:41 Immediate Presedation assesment performed by physician. 10:10:42 Patient has been NPO for More than 6Hrs. 10:10:42 Skin Breakdown- none per patient 10:10:50 Patient Warmer Placed on the Table. 10:10:50 Keiry Prominences Protected 10:10:51 A # 18 IV was noted in the Antecubital (right). Grade = 0 10:10:57 Patient arrived on IV Solutions in Right Antecubital via Peripheral IV. Pump/Drip Flow = 20 ml/hr using NaCl .9. 10:11:15 History and physical on the chart or being dictated. Assessment: Initial Case, HR=72 BPM, Rhythm=nsr, PCAC=937/81 mmhg, Chest Pain=0, Edema=None, Co miryam=Normal, Skin = Warm, Dry 10:11:50 Right Pulses: [place] Ped=2, Femoral=2, Radial=2 Neurological: State=Alert, Ox3, DOWNEY Respiration: Resp=15 B/min, SpO2=97 % Vitals capture started with the following parameters, Patient=Adult, Interval=5 min, Initial Pr rrqfmf=806 mmHg, 10:12:18 Deflation Rate=5 mmHg, Cuff placed on Right Ankle 10:13:24 HR=61 bpm, MQID=573/86 mmhg, SpO2=97.0 %, Resp=14 B/min, Pain=0, Fabiano=10, Overton=2 10:17:54 HR=65 bpm, UZDV=537/81 mmhg, SpO2=96.0 %, Resp=13 B/min, Pain=0, Fabiano=10, Overton=2 10:19:09 Right Radial and groin(s) prepped with 2% chlorhexidine, and draped after a 3 min. waiting time. 10:21:37 Reference ECG taken 10:22:49 HR=60 bpm, DFKQ=343/88 mmhg, SpO2=94 %, Resp=10 B/min, Pain=0, Fabiano=10, Overton=2 10:27:20 MD paged 10:27:30 MD responded 10:27:52 HR=64 bpm, OHQF=583/81 mmhg, SpO2=97.0 %, Resp=15 B/min, Pain=0, Fabiano=10, Overton=2 10:30:04 Pressure channel 1 zeroed. 10:32:53 HR=65 bpm, PUDN=667/76 mmhg, SpO2=97.0 %, Resp=13 B/min, Pain=0, Fabiano=10, Overton=2 10:33:45 MD arrived. :33:49 Contrast Scanned 10:33:49 Immediate Presedation assesment performed by physician. Patient arrived on 1 mg VERSED given by Ancelmo Dao RN in Right Antecubital via Peripheral IV. Ordered by Yogi, 10:36:01 Buck. Patient arrived on 25 mcg FENTANYL given by Ancelmo Dao RN in Right Antecubital via Peripheral IV. Ordered by Yogi, 10:36:08 Buck. 10:37:55 HR=68 bpm, IMAP=891/80 mmhg, SpO2=97.0 %, Resp=13 B/min Time Out. Correct patient, correct procedure, correct physician, power injector not loaded with contrast with surgical 10:39:04 team present. Time Out Concurred by MD and individual staff in procedure. 10:39:10 Case Start 10:39:10 Verbal Stimulation=2 Physical Stimulation=2 Airway=2 Respiration=2 TOTAL=8. (0=absent, 1=li mited, 2=present) 10:39:19 2 mL 1% XYLOCAINE given in lab by Buck Calix in Right Radial via Subcutaneous. 10:40:18 Access site was Right Radial Artery. A SHEATH, FR6 RADIAL PRELUDE EASE 11CM FR 6 was advanced into the Radial (right) using the Perc utaneous 10:40:26 technique. 10:40:41 200 mcg NTG (IC) given in lab by Buck Calix in Right Radial via Intra-arterial. 10:41:07 In the Radial (right) the SHEATH, FR6 RADIAL PRELUDE EASE 11CM FR [address] by Buck Calix. Patient arrived on 1 mg VERSED given by Ancelmo Dao RN in Right Antecubital via Peripheral IV. Ordered by Yogi, 10:41:22 Buck. Patient arrived on 25 mcg FENTANYL given by Ancelmo Dao RN in Right Antecubital via Peripheral IV. Ordered by Yogi, 10:41:25 Buck. A JR 5.0 DXTERITY CATHETER fr 5 was advanced over a wire. OMNIPAQUE, 350 MG, 150ML 150ML was us ed for 10:42:14 injections. 10:42:56 HR=71 bpm, CVGE=232/73 mmhg, SpO2=98.0 %, Resp=13 B/min, Pain=0, Fabiano=10, Overton=2 10:44:00 The Radial (right) was injected and visualized at various angles. OMNIPAQUE, 350 MG, 150ML 150ML used. 10:44:30 A WIRE, CHOICE PT 300CM PT EX. SUPP 300CM was inserted via Radial (right). 10:45:39 The previous wire was exchanged for a WIRE, EXCHANGE 260CM 3MMJ 260CM. 10:47:14 5000 units HEPARIN given in lab by Ancelmo Dao RN in Right Antecubital via Peripheral IV. Ordered by Buck Calix. 10:47:29 The RCA was injected and visualized at various angles. OMNIPAQUE, 350 MG, 150ML 150ML used . After removing the current catheter a JL 3.5 INFINITI CATHETER FR 5 was advanced over a WIRE, E XCHANGE 260CM 10:48:11 3MMJ 260CM. 10:48:19 HR=74 bpm, KMPY=806/69 mmhg, SpO2=90.0 %, Resp=15 B/min, Pain=0, Fabiano=10, Overton=2 10:50:19 The LCA was injected and visualized at various angles. OMNIPAQUE, 350 MG, 150ML 150ML used . 10:52:52 HR=74 bpm, KGJD=027/67 mmhg, SpO2=91.0 %, Resp=15 B/min, Pain=0, Fabiano=10, Overton=2 Recorded Pressure: Ao, HR=79, Condition=Condition 1 10:53:18 (Aorta) Ao 104/66/85 After removing the current catheter a JR 5.0 GUIDE CATHETER FR 6 was advanced over a WIRE, EXCH SERGIO 260CM 10:53:28 3MMJ 260CM. Patient arrived on 1 mg VERSED given by Ancelmo Dao RN in Right Antecubital via Peripheral IV. Ordered by Yogi, 10:54:07 Buck. Patient arrived on 25 mcg FENTANYL given by Ancelmo Dao RN in Right Antecubital via Peripheral IV. Ordered by Yogi, 10:54:10 Buck. 10:55:52 3000 units HEPARIN given in lab by Ancelmo Dao RN in Right Antecubital via Peripheral IV. Ordered by Buck Calix. Patient arrived on 25 mcg FENTANYL given by Ancelmo Dao RN in Right Antecubital via Peripheral IV. Ordered by Yogi 10:56:47 Buck. 10:57:06 A PRIME WIRE, VERRATA 185CM 185CM was inserted via Radial (right). 10:57:53 HR=69 bpm, SCYW=541/70 mmhg, SpO2=94.0 %, Resp=17 B/min, Pain=0, Fabiano=10, Overton=2 10:59:00 Interventional wire has crossed the lesion 10:59:45 Flow Wire was was placed in the RCA Mid. The FFR measures ~FFR~ percent. The IFR measures 9 4 Percent. 11:00:24 Wire removed 11:00:56 Catheter was removed 11:01:09 Case End Assessment: Final Case, HR=71 BPM, Rhythm=nsr, IOSI=017/70 mmhg, Chest Pain=0, Edema=None, [place] r=Normal, Skin = Warm, Dry 11:01:15 Right Pulses: [place]on Ped=2, Femoral=2, Radial=2 Neurological: State=Alert, Ox3, DOWNEY Respiration: Resp=15 B/min, SpO2=97 % 11:01:25 Catheter(s) removed without difficulty 11:01:28 No case complications noted. 11:01:29 Cine recording checked. 11:01:30 Bedside Report will be given. 11:01:32 Verbal Stimulation=2 Physical Stimulation=2 Airway=2 Respiration=2 TOTAL=8. (0=absent, 1=li mited, 2=present) 11:01:42 A Left Heart Cath was performed. 11:02:56 HR=67 bpm, INVV=585/65 mmhg, SpO2=98.0 %, Resp=11 B/min, Pain=0, Fabiano=10, Overton=2 Radial Compression Device Used. 12 mLs of air placed in BAND, RADIAL COMPRESSION TR LARGE 29 2 9CM. Affected 11:04:11 hand 96 % O2 saturation. 11:06:16 25 mcg FENTANYL given in lab by Ancelmo Dao RN in Right Antecubital via Peripheral IV. Or dered by Buck Calix. 11:07:55 HR=64 bpm, GXBX=575/64 mmhg, SpO2=94.0 %, Resp=14 B/min, Pain=0, Fabiano=10, Overton=2 11:08:42 Sterile dressing applied to site 11:08:42 No case complications noted. 11:08:43 Cine recording checked. 11:08:45 Bedside Report will be given. 11:08:48 A Left Heart Cath was performed. 11:11:15 Vitals capture stopped. End Study - Contrast Media Used In Study Contrast Total Opened (mL) Total Used (mL) Total Wasted (mL) Omnipaque 40 40 0 End Study - Maximum Contrast Load Max Contrast Load (mL) 395.8 End Study - Radiation Exposure Fluoro Time (minutes) 2.7 End Study - Patient Disposition Complications Transferred To Interventional Outcome No Automotive Service Technician Holding No attempt made
--- NOTE | 2017-12-24 11:45 | MA ---
cc: Buck Calix MD DATE: 12/24/2017 DATE OF PROCEDURE: 12/24/2017 INDICATION: Unstable angina. PROCEDURES PERFORMED: 1. Fluoroscopy with interpretation. 2. Coronary angiography. 3. Pressure derived fractional flow reserve measurement of the right coronary artery. METHOD: Risks, benefits, and alternatives were discussed with the patient. The patient understood and consented to the procedure. The patient was brought to the cardiac catheterization lab, placed on the catheterization table. The right wrist was prepped and draped in sterile fashion. The right wrist was anesthetized with 2% lidocaine. The right radial artery was cannulated and a 6-[place] 7-cm sheath was placed without difficulty. 200 mcg of intracoronary nitroglycerin and 3000 units of intravenous heparin was administered. CORONARY ANGIOGRAPHY: 1. Left main coronary artery is angiographically normal. 2. Left anterior descending coronary has stents present which are widely patent, mild luminal irregularities. 3. Left circumflex gives rise to an obtuse marginal branch with minor luminal irregularities. There is a small sub-branch which has about a 40-50% stenosis, not hemodynamically significant. 4. Right coronary artery is a dominant vessel, but small caliber size distally. The mid-segment has a tortuous region which probably has about a 40-50% stenosis angiographically. Appears maybe slightly worse than it had been on the last cardiac catheterization. PRESSURE DERIVED FRACTIONAL FLOW RESERVE MEASUREMENT OF THE RIGHT CORONARY ARTERY: Given the suggestive symptoms and questionable angiographic significance of the right coronary artery. We elected to proceed with hemodynamic evaluation. The right coronary artery was selectively engaged with a 6-[place] JR5 guide catheter. A 0.014-inch pressure wire was then normalized and calibrated and advanced down to the distal right coronary artery. IFR performed showed a value of 0.94 on 2 separate occasions, which did not meet hemodynamic significance. CONCLUSIONS: 1. Widely patent left anterior descending stent. 2. Moderate right coronary artery disease and branch vessel obtuse marginal branch disease. 3. Negative pressure derived fractional flow reserve measurement of the right coronary. PLAN: The patient had recently ran out of his isosorbide about 1 week ago. I correlate his recurrence of symptoms likely to that. There is no hemodynamically significant stenosis that needs intervention. We will plan to treat medically and reinitiate his isosorbide in addition to the Effient. He can followup in the outpatient setting. MD ALBERT Joe/MARYAM , 11:10 AM , 11:44 AM
--- NOTE | 2017-12-25 11:50 | EKG ---
Date Performed: 12/24/2017 Time Performed: 02:21:09 PTAGE: 52 years EKG: Sinus rhythm NORMAL ECG PREVIOUS TRACING : 11/09/2016 14.13 Since previous tracing, no significant change noted DOCTOR: Chance Douglas Interpretating Date/Time 12/25/2017 11:49:45
--- NOTE | 2017-12-25 11:50 | EKG ---
Date Performed: 12/24/2017 Time Performed: 05:36:47 PTAGE: 52 years EKG: Sinus rhythm INDETERMINATE AXIS ATYPICAL ECG PREVIOUS TRACING : 12/24/2017 02.21 Since previous tracing, no significant change noted DOCTOR: Chance Douglas Interpretating Date/Time 12/25/2017 11:48:47
--- NOTE | 2017-12-25 11:51 | EKG ---
Date Performed: 12/23/2017 Time Performed: 22:12:07 PTAGE: 52 years EKG: Sinus rhythm INDETERMINATE AXIS ABNORMAL ECG NO PREVIOUS TRACING DOCTOR: Chance Douglas Interpretating Date/Time 12/25/2017 11:50:32
== END 2017-12-24 17:10 | disposition home or self-care (01) ==
LOC: NEPE 21:37 → NEDA 12-24 02:00 → NEDH 12-24 06:35
PROVIDERS: ADMIT Internal Medicine; ATTEND Internal Medicine
DX: R07.89 Other chest pain (principal); I25.110 Atherosclerotic heart disease of native coronary artery with unstable angina pectoris; I10 Essential (primary) hypertension; E78.00 Pure hypercholesterolemia, unspecified; R94.31 Abnormal electrocardiogram [ECG] [EKG]; E10.65 Type 1 diabetes mellitus with hyperglycemia; E10.51 Type 1 diabetes mellitus with diabetic peripheral angiopathy without gangrene; E10.42 Type 1 diabetes mellitus with diabetic polyneuropathy; I25.2 Old myocardial infarction; F41.9 Anxiety disorder, unspecified; F32.9 Major depressive disorder, single episode, unspecified; Z79.899 Other long term (current) drug therapy; Z79.82 Long term (current) use of aspirin; Z95.5 Presence of coronary angioplasty implant and graft
CPT/HCPCS: 71045; 80053; 82550; 82552; 83735; 84484; 85025; 85610; 85730; 93005; 93458; 93571; 96372; 96374; 96376; 99152; 99153; 99285; C1769; C1887; C1893; G0378; J1644; J1815; J2250; J2270; J3010; J0583; Q9967

== ENCOUNTER 2018-03-19 20:48 | Observation (INO) ==
[2018-03-19 22:03] LABS: Baso # (Auto) 0.1 th/mm3 (0.0-0.2); Baso % (Auto) 1.1 % (0.0-2.0); Eos # (Auto) 0.3 th/mm3 (0.0-0.4); Eos % (Auto) 4.3 % (0.0-4.0); Hematocrit 44.7 % (39.0-51.0); Hemoglobin 15.5 gm/dL (13.0-17.0); Lymph # (Auto) 1.2 th/mm3 (1.0-4.8); Lymph % (Auto) 17.4 % (9.0-44.0); Mean Corpuscular HGB Conc 34.8 % (32.0-36.0); Mean Corpuscular Hemoglobin 31.2 pg (27.0-34.0); Mean Corpuscular Volume 89.8 fL (80.0-100.0); Mean Platelet Volume 8.7 fL (7.0-11.0); Mono # (Auto) 0.4 th/mm3 (0.0-0.9); Mono % (Auto) 5.6 % (0.0-8.0); Neut # (Auto) 4.9 th/mm3 (1.8-7.7); Neut % (Auto) 71.6 % (16.0-70.0); Platelet Count 120 th/mm3 (150-450); Red Blood Count 4.97 mil/mm3 (4.50-5.90); Red Cell Distribution Width 14.5 % (11.6-17.2); White Blood Count 6.8 th/mm3 (4.0-11.0)
[2018-03-19 22:15] LABS: Activated Partial Thrombo Time 31.9 sec (24.3-30.1)
[2018-03-19 22:18] LABS: Anion Gap 17 meq/L (5-15); Blood Urea Nitrogen 16 mg/dL (7-18); Calcium 9.2 mg/dL (8.5-10.1); Carbon Dioxide 22.4 meq/L (21.0-32.0); Chloride 88 meq/L (98-107); Creatine Kinase 144 U/L (39-308); Glomerular Filtration Rate 45 mL/min (>89); Magnesium 2.1 mg/dL (1.5-2.5); Potassium 4.8 meq/L (3.5-5.1); Sodium 127 meq/L (136-145)
[2018-03-19 22:22] LABS: Glucose,Random 711 mg/dL (74-106)
--- NOTE | 2018-03-19 22:25 | XR ---
EXAM DATE: 03/19/2018 10:21 PM EDT AGE/SEX: 52 years / Male INDICATIONS: Chest pain. CLINICAL DATA: This is the patient's initial encounter. Patient reports that signs and symptoms have been present for 1 day and indicates a pain score of 4/10. MEDICAL/SURGICAL HISTORY: . Hypertension. Hypercholesterolemia. Myocardial infarction. Diabetic . Coronary artery stent. COMPARISON: [facility] [place], 12/23/2017. . FINDINGS: A single AP view of the chest demonstrates the lungs to be symmetrically aerated without evidence of mass, infiltrate or effusion. The cardiomediastinal contours are unremarkable. Osseous structures a re intact. CONCLUSION: No acute cardiopulmonary process. Electronically signed by: Srikanth Rich MD 03/19/2018 10:24 PM EDT
[2018-03-19 22:38] LABS: Creatine Kinase MB 4.4 ng/mL (0.5-3.6)
[2018-03-19] MEDS ORDERED: Sod Chloride 0.9% Inj 1,000 ML IV.SIG ONE ×2 (22:49)
--- NOTE | 2018-03-19 23:17 | ED ---
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 pt is alos IDDM and HTN and multiple risck for ACS, EKG and trop and labs CXR all sent pain is intermittent radiates to left arm and worse with exertion. MD complaint: multiple complaints Related Data Home Medications Medication Instructions Recorded Confirmed aspirin 81 mg PO DAILY 03/19/18 03/19/18 insulin aspart U-100 [Novolog 1 sliding scale dose SUB-Q UD 03/19/18 03/19/18 U-100 Insulin aspart] insulin detemir U-100 [Levemir 163 unit SUB-Q ACHS 03/19/18 03/19/18 U-100 Insulin] lisinopril 10 mg PO DAILY 03/19/18 03/19/18 prasugrel [Effient] 10 mg PO DAILY 03/19/18 03/19/18 pregabalin [Lyrica] 500 mg PO DAILY 03/19/18 03/19/18 Previous Rx's Medication Instructions Recorded isosorbide mononitrate 60 mg PO DAILY #30 tab 03/20/18 nitroglycerin [Nitrostat] 0.4 mg SUBLINGUAL Q5M PRN tab 03/20/18 Allergies Allergy/AdvReac Type Severity Reaction Status Date / Time [id number] Reductase Allergy Cramping Verified 03/19/18 20:55 Inhibitor of the Muscles Review of Systems Except as stated in HPI: all other systems reviewed are negative [facility] Medical History Medical History CAD (coronary artery disease) (Acute) Diabetes (Acute) Gout (Acute) 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 (Acute) Neuropathy (Acute) Thrombocytopenia (Acute) Surgical History Surgical History H/O heart artery stent (Acute) History of cardiac cath (Acute) Social History Social History Substance History: No History of Abuse Second Hand Smoke Exposure: No Smoking Status: Never smoker How Often Do You Have a Drink Containing Alcohol: Never Hx Recent Travel: No Recent Travel in [facility] within the Last 8 Weeks: No Recent Out of Country Travel within the Last 8 Weeks: No Immunization History Tetanus Immunization: Unsure Hx Influenza Vaccine This Season: No Exam Narrative Exam Narrative: GENERAL: no vomiting no diaphoresis no signs of ACS SKIN: Warm and dry. HEAD: Atraumatic. Normocephalic. EYES: Pupils equal and round. No scleral icterus. No injection or drainage. ENT: No nasal bleeding or discharge. Mucous membranes pink and moist. NECK: Trachea midline. No JVD. CARDIOVASCULAR: Regular rate and rhythm. RESPIRATORY: No accessory muscle use. Clear to auscultation. Breath sounds equal bilaterally. GASTROINTESTINAL: Abdomen soft, non-tender, nondistended. Hepatic and splenic margins not palpable. MUSCULOSKELETAL: Extremities without clubbing, cyanosis, or edema. No obvious deformities. NEUROLOGICAL: Awake and alert. No obvious cranial nerve deficits. Motor grossly within normal limits. Five out of 5 muscle strength in the arms and legs. Normal speech. PSYCHIATRIC: Appropriate mood and affect; insight and judgment normal. Course Initial Documented Vital Signs Temperature 98.5 F 03/19/18 20:51 Pulse Rate 95 H 03/19/18 20:51 Respiratory Rate 18 03/19/18 20:51 Blood Pressure 145/72 H 03/19/18 20:51 Pulse Oximetry 99 03/19/18 20:51 Last Documented Vital Signs Temperature 98.6 F 03/20/18 12:00 Pulse Rate 69 03/20/18 12:00 Respiratory Rate 12 03/20/18 15:18 Blood Pressure 147/78 H 03/20/18 12:00 Pulse Oximetry 94 L 03/20/18 12:00 Medical Decision Making [facility] Narrative Medical decision making narrative: pt trop negative and ASPIRIN AND NITRO AND ADMITTED CP center Differential Diagnosis Differential Diagnosis: gerd vs ischemic pain unstable angina vs angina other gastritis pancreatitis GB disease Lab Data Result diagrams: 03/19/18 21:10 03/19/18 21:10 Lab Results 03/19/18 03/19/18 03/19/18 Range/Units 21:10 21:10 21:10 WBC 6.8 (4.0-11.0) th/mm3 RBC 4.97 (4.50-5.90) mil/mm3 Hgb 15.5 (13.0-17.0) gm/dL Hct 44.7 (39.0-51.0) % MCV 89.8 (80.0-100.0) fL MCH 31.2 (27.0-34.0) pg MCHC 34.8 (32.0-36.0) % RDW 14.5 (11.6-17.2) % Plt Count 120 L (150-450) th/mm3 MPV 8.7 (7.0-11.0) fL Neut % (Auto) 71.6 H (16.0-70.0) % Lymph % (Auto) 17.4 (9.0-44.0) % [place] % (Auto) 5.6 (0.0-8.0) % Eos % (Auto) 4.3 H (0.0-4.0) % Baso % (Auto) 1.1 (0.0-2.0) % Neut # (Auto) 4.9 (1.8-7.7) th/mm3 Lymph # (Auto) 1.2 (1.0-4.8) th/mm3 [place] # (Auto) 0.4 (0.0-0.9) th/mm3 Eos # (Auto) 0.3 (0.0-0.4) th/mm3 Baso # (Auto) 0.1 (0.0-0.2) th/mm3 WBC Differential . Differential Comment Auto diff final PT 10.0 (9.8-11.6) sec INR 1.0 Ratio APTT 31.9 H (24.3-30.1) sec Sodium 127 L (136-145) meq/L Potassium 4.8 (3.5-5.1) meq/L Chloride 88 L (98-107) meq/L Carbon Dioxide 22.4 (21.0-32.0) meq/L Anion Gap 17 H (5-15) meq/L BUN 16 (7-18) mg/dL Creatinine 1.61 H (0.60-1.30) mg/dL Estimated GFR 45 L (>89) mL/min POC Glucose (68-110) mg/dl Random Glucose 711 H* (74-106) mg/dL Calcium 9.2 (8.5-10.1) mg/dL Magnesium 2.1 (1.5-2.5) mg/dL Total Creatine Kinase 144 (39-308) U/L CK-MB (CK-2) 4.4 H (0.5-3.6) ng/mL Troponin I Less than 0.02 L (0.02-0.05) ng/mL Beta-Hydroxybutyric Acd (0.00-0.39) mmol/L 03/19/18 03/20/18 03/20/18 Range/Units 21:10 00:19 00:40 WBC (4.0-11.0) th/mm3 RBC (4.50-5.90) mil/mm3 Hgb (13.0-17.0) gm/dL Hct (39.0-51.0) % MCV (80.0-100.0) fL MCH (27.0-34.0) pg MCHC (32.0-36.0) % RDW (11.6-17.2) % Plt Count (150-450) th/mm3 MPV (7.0-11.0) fL Neut % (Auto) (16.0-70.0) % Lymph % (Auto) (9.0-44.0) % [place] % (Auto) (0.0-8.0) % Eos % (Auto) (0.0-4.0) % Baso % (Auto) (0.0-2.0) % Neut # (Auto) (1.8-7.7) th/mm3 Lymph # (Auto) (1.0-4.8) th/mm3 [place] # (Auto) (0.0-0.9) th/mm3 Eos # (Auto) (0.0-0.4) th/mm3 Baso # (Auto) (0.0-0.2) th/mm3 WBC Differential Differential Comment PT (9.8-11.6) sec INR Ratio APTT (24.3-30.1) sec Sodium (136-145) meq/L Potassium (3.5-5.1) meq/L Chloride (98-107) meq/L Carbon Dioxide (21.0-32.0) meq/L Anion Gap (5-15) meq/L BUN (7-18) mg/dL Creatinine (0.60-1.30) mg/dL Estimated GFR (>89) mL/min POC Glucose 478 H* (68-110) mg/dl Random Glucose (74-106) mg/dL Calcium (8.5-10.1) mg/dL Magnesium (1.5-2.5) mg/dL Total Creatine Kinase 109 (39-308) U/L CK-MB (CK-2) (0.5-3.6) ng/mL Troponin I Less than 0.02 L (0.02-0.05) ng/mL Beta-Hydroxybutyric Acd 0.27 (0.00-0.39) mmol/L 03/20/18 03/20/18 03/20/18 Range/Units 01:22 02:18 03:10 WBC (4.0-11.0) th/mm3 RBC (4.50-5.90) mil/mm3 Hgb (13.0-17.0) gm/dL Hct (39.0-51.0) % MCV (80.0-100.0) fL MCH (27.0-34.0) pg MCHC (32.0-36.0) % RDW (11.6-17.2) % Plt Count (150-450) th/mm3 MPV (7.0-11.0) fL Neut % (Auto) (16.0-70.0) % Lymph % (Auto) (9.0-44.0) % [place] % (Auto) (0.0-8.0) % Eos % (Auto) (0.0-4.0) % Baso % (Auto) (0.0-2.0) % Neut # (Auto) (1.8-7.7) th/mm3 Lymph # (Auto) (1.0-4.8) th/mm3 [place] # (Auto) (0.0-0.9) th/mm3 Eos # (Auto) (0.0-0.4) th/mm3 Baso # (Auto) (0.0-0.2) th/mm3 WBC Differential Differential Comment PT (9.8-11.6) sec INR Ratio APTT (24.3-30.1) sec Sodium (136-145) meq/L Potassium (3.5-5.1) meq/L Chloride (98-107) meq/L Carbon Dioxide (21.0-32.0) meq/L Anion Gap (5-15) meq/L BUN (7-18) mg/dL Creatinine (0.60-1.30) mg/dL Estimated GFR (>89) mL/min POC Glucose 312 H 318 H (68-110) mg/dl Random Glucose (74-106) mg/dL Calcium (8.5-10.1) mg/dL Magnesium (1.5-2.5) mg/dL Total Creatine Kinase 108 (39-308) U/L CK-MB (CK-2) (0.5-3.6) ng/mL Troponin I Less than 0.02 L (0.02-0.05) ng/mL Beta-Hydroxybutyric Acd (0.00-0.39) mmol/L 03/20/18 03/20/18 03/20/18 Range/Units 03:10 07:48 11:14 WBC (4.0-11.0) th/mm3 RBC (4.50-5.90) mil/mm3 Hgb (13.0-17.0) gm/dL Hct (39.0-51.0) % MCV (80.0-100.0) fL MCH (27.0-34.0) pg MCHC (32.0-36.0) % RDW (11.6-17.2) % Plt Count (150-450) th/mm3 MPV (7.0-11.0) fL Neut % (Auto) (16.0-70.0) % Lymph % (Auto) (9.0-44.0) % [place] % (Auto) (0.0-8.0) % Eos % (Auto) (0.0-4.0) % Baso % (Auto) (0.0-2.0) % Neut # (Auto) (1.8-7.7) th/mm3 Lymph # (Auto) (1.0-4.8) th/mm3 [place] # (Auto) (0.0-0.9) th/mm3 Eos # (Auto) (0.0-0.4) th/mm3 Baso # (Auto) (0.0-0.2) th/mm3 WBC Differential Differential Comment PT (9.8-11.6) sec INR Ratio APTT (24.3-30.1) sec Sodium (136-145) meq/L Potassium (3.5-5.1) meq/L Chloride (98-107) meq/L Carbon Dioxide (21.0-32.0) meq/L Anion Gap (5-15) meq/L BUN (7-18) mg/dL Creatinine (0.60-1.30) mg/dL Estimated GFR (>89) mL/min POC Glucose 280 H 326 H 372 H (68-110) mg/dl Random Glucose (74-106) mg/dL Calcium (8.5-10.1) mg/dL Magnesium (1.5-2.5) mg/dL Total Creatine Kinase (39-308) U/L CK-MB (CK-2) (0.5-3.6) ng/mL Troponin I (0.02-0.05) ng/mL Beta-Hydroxybutyric Acd (0.00-0.39) mmol/L Imaging Data Radiologist's impression: Chest X-Ray 03/19/18 21:04 CONCLUSION: No acute cardiopulmonary process. Myocardial Perfusion Scan Nuc Med 03/20/18 00:00 CONCLUSION: Unremarkable myocardial perfusion scan. Discharge Plan Discharge Disposition Patient Disposition: 30 Still Patient Discharge Condition Condition: Good Discharge Order Discharge Orders: Discharge Order (Routine); Ordered 03/20/18 Ordered By: Jany Collado Discharge Details Anticipated Discharge Date: 03/20/18 Discharge Comment: [facility] [[email or web address] [phone] Physicians Team ED Provider: Flaco Tinoco Primary Care Provider: Primary Care Jennifer Mcgee Attending Provider: Lloyd Simons Status ED Status: Left Department Discharge Information Discharge Date/Time: 03/20/18 03:28
[2018-03-20] MEDS ORDERED: Pregabalin 25 MG Capsule PO ONE (00:21)
[2018-03-20 01:29] LABS: Creatine Kinase 109 U/L (39-308)
[2018-03-20] MEDS: Sod Chloride 0.9% Inj 1,000 ML IV.CONT SCH ×4 (01:52→13:24)
[2018-03-20 04:26] LABS: Creatine Kinase 108 U/L (39-308)
[2018-03-20] MEDS ORDERED: Dextrose 50% in Water 50 ML Vial IV.PUSH PRN (08:01)
[2018-03-20] MEDS ORDERED: Acetaminophen 500 MG Tablet PO PRN (09:23)
--- NOTE | 2018-03-20 10:32 | P.HPCA ---
History of Present Illness Primary Care Physician: No Primary Care Physician Chief Complaint: Chest pain History of Present Illness: 52-year-old male uncontrolled diabetes and known coronary artery disease presents to the ER for further evaluation chest pain. Onset 1 week. Location left anterior chest. Characterized as tightness. Radiation to left arm sided neck. No associated symptoms of nausea, vomiting, dyspnea, or paresis. Endorses similar pain in the past prior to events or interventions. No precipitating factors. Experienced intermittent daily discomfort x1 week. Endorses compliance with Imdur 60 mg daily, also taking nitro this week with some relief within a couple minutes. Relief generally for one hour. Unfortunately currently he does not have a primary care provider and does not follow with a industrial truck operator. No recent illness, fever, or chills. Reports uncontrolled diabetes and his normal glucose range is between 600-700. Currently reports headache from reported blood glucose having been decreased to under 300. - Diagnosis (1) Chest pain of unknown etiology (2) Type 2 diabetes, uncontrolled, with neuropathy (3) History of coronary artery disease Inpatient Certification: I certify that the inpatient services were ordered in accordance with Medicare regulations governing the order. This includes certification that hospital inpatient services are reasonable and necessary and in the case of services not specified as inpatient-only under 42 CFR 419.22(n), that they are appropriately provided as inpatient services in accordance to with the 2-midnight benchmark under 43 CFR 412.3(e) Estimated Total Length of Stay (Days): 1 Plans for Post Hospital Care: Home Review of Systems No: All other systems reviewed negative except as stated in HPI [facility] - History History Provided By: Patient - Medical History Medical History: Medical History (Last Updated 03/20/18 @ 13:01 by KANA Murphy) CAD (coronary artery disease) Diabetes Gout 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 Neuropathy Thrombocytopenia - Surgical History Surgical History: Surgical History (Last Updated 03/20/18 @ 13:01 by KANA Murphy) H/O heart artery stent History of cardiac cath - Tobacco History Second Hand Smoke Exposure: No Tobacco Use In Past 30 Days: No Smoking Status: Never smoker - Alcohol History How Often Do You Have a Drink Containing Alcohol: Never - Substance Use History Substance History: No History of Abuse - Travel History History of Recent Travel: No Recent Travel in the [place] Within the Last 8 Weeks: No Recent Travel Out of the Country Within the Last 8 Weeks: No - Immunization History Tetanus Immunization: Unsure Hx Influenza Vaccine This Season: No Medications and Allergies Active Medications: Active Medications Acetaminophen (Tylenol) 500 mg PO Q4H PRN PRN Reason: HEADACHE Last Admin: 03/20/18 09:36 Dose: 500 mg Dextrose (D50w Vial) 50 ml IV.PUSH UNSCH PRN PRN Reason: PER HYPOGLYCEMIA PROTOCOL Glucagon (Glucagon Inj) 1 mg OTHER PRN PRN PRN Reason: for Hypoglycemia Protocol Sodium Chloride (Ns Inj) 1,000 mls @ 250 mls/hr IV.CONT .Q4H GORDON Last Admin: 03/20/18 09:37 Dose: 250 mls/hr Insulin Aspart (Novolog Insulin Suppl Scale Inj) 0 unit SQ ACHS [facility]; Protocol Nitroglycerin (Nitrostat Sl) 0.4 mg SL Q5M PRN PRN Reason: CHEST PAIN Sodium Chloride (Ns Flush) 2 ml IV.FLUSH UNSCH PRN PRN Reason: FLUSH AFTER USING IV ACCESS Sodium Chloride (Ns Flush) 2 ml IV.FLUSH BID [facility] Last Admin: 03/20/18 08:26 Dose: Not Given Sodium Chloride (Ns Flush) 2 ml IV.FLUSH PRN PRN PRN Reason: FLUSH AFTER USING IV ACCESS Sodium Chloride (Ns Flush) 2 ml IV.FLUSH BID [facility] Allergies Allergy/AdvReac Type Severity Reaction Status Date / Time Rraejrr-Njt-Trq Reductase Allergy Cramping Verified 03/19/18 20:55 Inhibitor of the Muscles Home Medications Medication Instructions Recorded Confirmed Type aspirin 81 mg PO DAILY 03/19/18 03/19/18 History insulin aspart U-100 [Novolog 1 sliding scale dose SUB-Q UD 03/19/18 03/19/18 History U-100 Insulin aspart] insulin detemir U-100 [Levemir 163 unit SUB-Q ACHS 03/19/18 03/19/18 History U-100 Insulin] lisinopril 10 mg PO DAILY 03/19/18 03/19/18 History prasugrel [Effient] 10 mg PO DAILY 03/19/18 03/19/18 History pregabalin [Lyrica] 500 mg PO DAILY 03/19/18 03/19/18 History Exam Vital signs: Vital Signs 03/19/18 20:51 03/19/18 21:09 03/19/18 21:10 Temperature 98.5 F Pulse Rate 95 H 97 H 99 H Respiratory Rate 18 16 Blood Pressure 145/72 H 170/98 H Pulse Oximetry 99 95 03/20/18 00:47 03/20/18 04:02 03/20/18 04:08 Temperature 98.1 F Pulse Rate 82 72 Respiratory Rate 18 18 Blood Pressure 141/83 H 133/90 Pulse Oximetry 96 96 98 03/20/18 07:00 03/20/18 07:38 03/20/18 08:00 Temperature 97.7 F Pulse Rate 72 Respiratory Rate 12 18 Blood Pressure 143/71 H Pulse Oximetry 98 94 L 03/20/18 08:40 Temperature Pulse Rate Respiratory Rate Blood Pressure Pulse Oximetry 94 L Intake & Output 03/19/18 03/20/18 03/20/18 18:59 06:59 18:59 Intake Total 3000 / 3000 Balance 3000 / 3000 Weight 97 kg Intake: IV 3000 / 3000 NS Inj 1,000 ML @ 250 mls/hr IV 1000 / 1000 .CONT .Q4H GORDON Rx#:[id number] NS Inj 1,000 ML @ Wide Open IV. 1999 / 1999 SIG BOLUS ONE Rx#:[id number] Other: # Voids 1 Narrative: male. - Constitutional no acute distress - Routine HEENT Exam Head: Present: normocephalic, atraumatic Eye: Present: EOMI, PERRL, normal accommodation ENT: Present: mucous membranes moist - Routine Neck Exam Present: supple, full ROM. Absent: JVD, carotid bruit - Routine Chest/Breast/Axilla Exam Chest wall: Absent: tenderness - Routine Respiratory Exam Present: CTA bilaterally. Absent: rhonchi, wheezes, crackles - Routine Cardiovascular Exam Present: RRR, murmur. Absent: gallop, rubs Comments: 2/6 systolic murmur - Routine Abdominal Exam Present: soft, normoactive bowel sounds. Absent: tenderness, distended - Routine Extremities Exam Present: full ROM, normal capillary refill. Absent: edema - Detailed Extremities Exam: Vascular Peripheral pulses: 0 posterior tibialis (L), 0 dorsalis pedis (L), 2+ carotid (L ), 2+ carotid (R), 2+ femoral (L), 2+ femoral (R), 2+ posterior tibialis (R), 2 + dorsalis pedis (R) - Routine Skin Exam Present: intact, dry, warm. Absent: cyanosis, pallor Comments: decrease hair distribution bilateral lower extremities. Skin intact. Monofilament testing positive - Routine Neurological Exam Present: alert, oriented X3, CN II-XII intact, moving all extremities, normal tone, normal speech Results 03/19/18 21:10 03/19/18 21:10 Cardiac Enzymes 03/19/18 03/20/18 03/20/18 Range/Units 21:10 00:40 03:10 CK-MB (CK-2) 4.4 H (0.5-3.6) ng/mL Troponin I Less than 0.02 L Less than 0.02 L Less than 0.02 L (0.02-0.05) ng/mL Coagulation 03/19/18 Range/Units 21:10 PT 10.0 (9.8-11.6) sec APTT 31.9 H (24.3-30.1) sec CBC 03/19/18 Range/Units 21:10 WBC 6.8 (4.0-11.0) th/mm3 RBC 4.97 (4.50-5.90) mil/mm3 Hgb 15.5 (13.0-17.0) gm/dL Hct 44.7 (39.0-51.0) % Plt Count 120 L (150-450) th/mm3 Neut # (Auto) 4.9 (1.8-7.7) th/mm3 Lymph # (Auto) 1.2 (1.0-4.8) th/mm3 [place] # (Auto) 0.4 (0.0-0.9) th/mm3 Eos # (Auto) 0.3 (0.0-0.4) th/mm3 Baso # (Auto) 0.1 (0.0-0.2) th/mm3 Comprehensive Metabolic Panel 03/19/18 Range/Units 21:10 Sodium 127 L (136-145) meq/L Potassium 4.8 (3.5-5.1) meq/L Chloride 88 L (98-107) meq/L Carbon Dioxide 22.4 (21.0-32.0) meq/L BUN 16 (7-18) mg/dL Creatinine 1.61 H (0.60-1.30) mg/dL Calcium 9.2 (8.5-10.1) mg/dL Intake and Output 03/19/18 03/20/18 03/20/18 22:59 06:59 14:59 Intake Total 3000 / 3000 Balance 3000 / 3000 Intake: IV 3000 / 3000 NS Inj 1,000 ML @ 250 mls/hr IV 1000 / 1000 .CONT .Q4H GORDON Rx#:[id number] NS Inj 1,000 ML @ Wide Open IV. 1999 / 1999 SIG BOLUS ONE Rx#:[id number] Other: # Voids 1 Weight 97 kg EKG interpretations - EKG EKG results cardiology: WNL, sinus rhythm, normal axis, normal QRS, normal ST/T Caprini VTE Risk Assessment Caprini VTE Risk Assessment: No/Low Risk (score <= 1) Caprini Risk Assessment Model: Point Value = 1 Point Value = 2 Point Value = 3 Point Value = 5 Age 41-60 Minor surgery BMI > 25 kg/m2 Swollen legs Varicose veins or History of unexplained or recurrent spontaneous Oral contraceptives or hormone replacement Sepsis (< 1 month) Serious lung disease, including pneumonia (< 1 month) Abnormal pulmonary function Acute myocardial infarction Congestive heart failure (< 1 month) History of inflammatory bowel disease Medical patient at bed rest Age 61-74 Arthroscopic surgery Major open surgery (> 45 min) Laparoscopic surgery (> 45 min) Malignancy Confined to bed (> 72 hours) Immobilizing plaster cast Central venous access Age >= 75 History of VTE Family history of VTE Factor V Leiden Prothrombin [id number] Lupus anticoagulant Anticardiolipin antibodies Elevated serum homocysteine Heparin-induced thrombocytopenia Other congenital or acquired thrombophilia Stroke (< 1 month) Elective arthroplasty Hip, pelvis, or leg fracture Acute spinal cord injury (< 1 month) Prophylaxis Regimen: Total Risk Factor Score Risk Level Prophylaxis Regimen 0-1 Low Early ambulation 2 Moderate Order ONE of the following: *Sequential Compression Device (SCD) *Heparin 5000 units SQ BID 3-4 Higher Order ONE of the following medications: *Heparin 5000 units SQ TID *Enoxaparin/Lovenox 40 mg SQ daily (WT < 150 kg, CrCl > 30 mL/min) *Enoxaparin/Lovenox 30 mg SQ daily (WT < 150 kg, CrCl > 10-29 mL/min) *Enoxaparin/Lovenox 30 mg SQ BID (WT < 150 kg, CrCl > 30 mL/min) AND/OR *Sequential Compression Device (SCD) 5 or more Highest Order ONE of the following medications: *Heparin 5000 units SQ TID (Preferred with Epidurals) *Enoxaparin/Lovenox 40 mg SQ daily (WT < 150 kg, CrCl > 30 mL/min) *Enoxaparin/Lovenox 30 mg SQ daily (WT < 150 kg, CrCl > 10-29 mL/min) *Enoxaparin/Lovenox 30 mg SQ BID (WT < 150 kg, CrCl > 30 mL/min) AND *Sequential Compression Device (SCD) Assessment and Plan - Assessment (1) Chest pain of unknown etiology Code(s): R07.89 - Other chest pain Status: Acute Plan: Admitted to chest pain center. Ruled out with 3 sets of EKGs and cardiac enzymes. Monitored on telemetry. Seen and evaluated by Dr. Simons. Proceed with myocardia perfusion study today. If unremarkable, plans are to discharge home. Discussed importance of establishing with a primary care (2) Type 2 diabetes, uncontrolled, with neuropathy Code(s): E11.40 - Type 2 diabetes mellitus with diabetic neuropathy, unspecified ; E11.65 - Type 2 diabetes mellitus with hyperglycemia Status: Acute Plan: SSI moderate dose coverage, glucose level 711 in ER. Glucose now under 300. Refusing insulin while he is NPO despite elevated glucose levers. Reports being a brittle diabetic for many years and his normal bgm are well over 400. Education and discussed importance of insulin therapy and tight blood glucose control. Attempted to reinforce once glucose levels become lower his body will adjust, likely not causing ill symptoms from normalized glucose level. Continued education and reinforce required in the outpatient setting. Made aware of fee for service local clinic and instructed him to call for appointment. Likely he may be able to afford [facility] services due to his limited income and lack of insurance coverage. Verbalized understand and states he will call clinic. Optimal care would be to establish with an tank truck driver. (3) History of coronary artery disease Code(s): Z86.79 - Personal history of other diseases of the circulatory system Status: Chronic Plan: Continue Effient, aspirin, and Imdur upon discharge. Encouraged him to establish with a industrial truck operator. Unfortunately due to lack of insurance and discharged from the [facility] this will be difficult for him to obtain. Encouraged calling local industrial truck operator for possible fee for service office visits. If Lexiscan unremarkable, will provide refill of Imdur. H&P: Quality - VTE Deep Vein Thrombosis/Pulmonary Embolism Present on Admission: No
--- NOTE | 2018-03-20 10:56 | P.PNCA ---
Subjective Interval history: 52-year-old white male with a history of severe diabetes out of control presenting with glucose of over 700. He also has a history of coronary artery disease dating back to a similar presentation in 2013 which resulted in a catheterization and documentation according to the patient of 95% obstruction of the LAD " maker". Dr. Menon stented this vessel but subsequent to discharge the patient supposedly experienced a heart attack and was returned to the hospital. He remained stable after that period of time and had no recurrence of symptoms until over this last year when symptoms recurred. Did not show the problem but that when he was cathed by Dr. taylor he was found to have 85% recurrence of disease in the LAD which was stented. He had a subsequent cath and another stent for 85% stenosis in the LAD also by Dr. taylor. Since that that time he was again reevaluated and because of ongoing symptoms was placed on a long-acting nitrate which he has continued to take to the present time. However over the last 2 weeks she has been having recurrence of the same symptoms which he describes as a tightness or cramping feeling in the left upper chest that radiates into the shoulders arm and neck. He has been having these episodes daily multiple times a day and some at night. He gets relief for up to about 30 minutes with nitroglycerin but this is also associated with severe headache. His diabetes remains a problem in that he just states his daily sugars usually over 600. He was [facility] but was discontinued there supposedly for missing an appointment. Obviously additional history would be helpful in this regard. He has 1 large dose of insulin which he claims to take regularly. He does complain of fairly severe neuropathy as well Physical Exam Vital signs: Vital Signs 03/19/18 20:51 03/19/18 21:09 03/19/18 21:10 Temperature 98.5 F Pulse Rate 95 H 97 H 99 H Respiratory Rate 18 16 Blood Pressure 145/72 H 170/98 H Pulse Oximetry 99 95 03/20/18 00:47 03/20/18 04:02 03/20/18 04:08 Temperature 98.1 F Pulse Rate 82 72 Respiratory Rate 18 18 Blood Pressure 141/83 H 133/90 Pulse Oximetry 96 96 98 03/20/18 07:00 03/20/18 07:38 03/20/18 08:00 Temperature 97.7 F Pulse Rate 72 Respiratory Rate 12 18 Blood Pressure 143/71 H Pulse Oximetry 98 94 L 03/20/18 08:40 Temperature Pulse Rate Respiratory Rate Blood Pressure Pulse Oximetry 94 L Intake & Output 03/19/18 03/20/18 03/20/18 18:59 06:59 18:59 Intake Total 3000 / 3000 1000 / 1000 Balance 3000 / 3000 1000 / 1000 Weight 97 kg Intake: IV 3000 / 3000 1000 / 1000 NS Inj 1,000 ML @ 250 mls/hr IV 1000 / 1000 1000 / 1000 .CONT .Q4H GORDON Rx#:[id number] NS Inj 1,000 ML @ Wide Open IV. 1999 / 1999 SIG BOLUS ONE Rx#:[id number] Other: # Voids 1 Narrative: Well-nourished well-developed alert white male in no acute distress at this time Eyes PERRLA EOMI sclera clear nose he is complaining of some recent nosebleeds but no active lesion was seen Mouth mucous membranes moist and well papillated there are no lesions but dental caries fairly extensive particularly in right upper Neck is supple no JVD masses nodes or bruits Chest clear to auscultation with no rales wheezes or rhonchi Cardiovascular regular sinus rhythm no gallop or rub but there is a soft 2/6 systolic murmur Abdomen soft nontender Extremities dorsalis pedis is not palpable on the left posterior is not palpable left or right. Both feet are numb by patient report and there is no hair growth noted however there are no areas of ischemia or lesions appreciated Assessment and Plan - Plan Patient's previous cath and nuclear studies were reviewed. His nuclear studies indeed showed very mild changes considering the degree of documented ischemia however they did show some change in the anterior wall at this time a repeat nuclear scan will be obtained for comparison to the previous study. If there appears to be increasing ischemia he will be readmitted for further inpatient evaluation.
[2018-03-20] MEDS ORDERED: Insulin NovoLOG Aspart Correctional Sugar Inj SQ SCH (12:00)
[2018-03-20] MEDS ORDERED: Regadenoson Inj 0.4 MG/5 ML Syringe IV.PUSH ONE (12:37)
--- NOTE | 2018-03-20 14:55 | NM ---
EXAM DATE: 03/20/2018 1:58 PM EDT AGE/SEX: 52 years / Male INDICATIONS:Angina. . Chest pain. CLINICAL DATA: This is the patient's initial encounter. Patient reports that signs and symptoms have been present for 2 days and indicates a pain score of 3/10. MEDICAL/SURGICAL HISTORY: Diabetes mellitus type II. Hypertension. Coronary artery stent. Card iac cath. COMPARISON: No prior exams available for comparison. DOSE: 8.1 mCi Tc 99m Myoview at rest 26.8 mCi [id number] at stress 0.4 mg Lexiscan STRESS SYMPTOMS: None. EJECTION FRACTION: >70 % TECHNIQUE: The patient underwent pharmacologic stress with infusion of prescribed dose. Continuous ECG tracing was monitored during stress. Gated SPECT imaging was performed after stress and conventi onal SPECT imaging was performed at rest. The examination was performed on a SPECT/CT scanner, both attenuation and non-corrected datasets were reviewed. FINDINGS: Distribution: The maximum perfused segment at stress is in the inferior wall. Perfusion Study: The pattern of perfusion at stress is within normal limits. Gated Study: There are intact wall motion and wall thickening without hypokinetic or dyskinetic segm ents. The ejection fraction is calculated at >70%. RISK CATEGORY: Low (<1% Annual Motality Rate) CONCLUSION: Unremarkable myocardial perfusion scan. Electronically signed by: Maximino Pandya MD 03/20/2018 2:53 PM EDT
[2018-03-20] MEDS ORDERED: Lisinopril 10 MG Tablet PO SCH (15:00)
--- NOTE | 2018-03-21 14:47 | ECG ---
Date Performed: 03/20/2018 Time Performed: 00:48:51 PTAGE: 52 years EKG: Sinus rhythm INDETERMINATE AXIS ABNORMAL ECG PREVIOUS TRACING : 03/19/2018 21.06 Since previous tracing, no significant change noted DOCTOR: Maximino Read Interpretating Date/Time 03/21/2018 14:46:24
--- NOTE | 2018-03-21 14:47 | ECG ---
Date Performed: 03/20/2018 Time Performed: 03:12:43 PTAGE: 52 years EKG: Sinus rhythm INDETERMINATE AXIS ATYPICAL ECG PREVIOUS TRACING : 03/20/2018 00.48 Since previous tracing, no significant change noted DOCTOR: Maximino Read Interpretating Date/Time 03/21/2018 14:46:08
--- NOTE | 2018-03-21 14:48 | ECG ---
Date Performed: 03/19/2018 Time Performed: 21:06:13 PTAGE: 52 years EKG: Sinus rhythm MARKED LEFT AXIS DEVIATION ABNORMAL ECG INTERPRETATION BASED ON A DEFAULT AGE OF 40 YEARS PREVIOUS TRACING : 12/24/2017 05.36 Since previous tracing, no significant change noted DOCTOR: Maximino Read Interpretating Date/Time 03/21/2018 14:47:09
--- NOTE | 2018-03-21 14:52 | TR ---
Date Performed: 03/20/2018 Time Performed: 13:04:05 DOCTOR: Maximino Read DRUG LIST: CLINICAL HISTORY: REASON FOR TEST: REASON FOR ENDING: OBSERVATION: CONCLUSION: COMMENTS: Lexiscan stress test was performed under standard four minute protocol. Radionuclide was injected one minute prior to ending the test. No electrocardiographic abormalities were present t o suggest ischemia. Nuclear imaging and interpretation are pending.
== END 2018-03-20 18:49 | disposition home or self-care (01) ==
LOC: NEDA 20:48 → NEPC 20:48 → NEPHCDU 20:48 → NEDA 03-20 03:28 → NEPHCDU 03-20 03:35
PROVIDERS: ADMIT Internal Medicine Interventional Cardiology; ATTEND Internal Medicine Interventional Cardiology
DX: Z79.82 Long term (current) use of aspirin; Z79.4 Long term (current) use of insulin; Z79.899 Other long term (current) drug therapy; K02.9 Dental caries, unspecified; I25.10 Atherosclerotic heart disease of native coronary artery without angina pectoris; R51 Headache; Z95.5 Presence of coronary angioplasty implant and graft; I10 Essential (primary) hypertension; E11.40 Type 2 diabetes mellitus with diabetic neuropathy, unspecified; E11.65 Type 2 diabetes mellitus with hyperglycemia; R07.89 Other chest pain